=== PATIENT | male | born 1965 | race Two or more races ===

== ENCOUNTER 2017-02-17 13:30 | Inpatient (IN) | payer MEDICAID, SELFPAY ==
[~2017-02-17] VITALS: Ht 175.3 cm; Wt 65.8 kg
[~2017-02-17 13:30] MED LIST: IBUPROFEN600 MG PO; NKM; NORCO 5-325 TA1 EACH ORAL; VALIUM5 MG ORAL
--- NOTE | 2017-02-17 13:53 | Emergency Room Report ---
History of Present Illness General Chief Complaint: Chest Pain Source: Patient Present Illness HPI Patient presents by paramedics for complaints of chest pain Upon arrival the patient has a very blunted affect Upon asking questions he reports that he was feeling ill Currently denies any chest pain denies any back or flank pain Patient does drink alcohol on a regular basis Denies any vomiting or diarrhea Onset of symptom was prior to calling the paramedics however the history of present illness this is somewhat limited as the patient does not answer all questions Stays away to the right side And appears mildly encephalopathic Allergies: Coded Allergies: No Known Allergies (Unverified , 10/08/13) Patient History Limited by: medical condition Past Medical History: see triage record Pertinent Family History: unable to obtain Reviewed Nursing Documentation: PMH: Agreed, PSxH: Agreed Nursing Documentation-PMH Past Medical History: No Stated History Review of Systems All Other Systems: limited - Other than the ones mentioned in the history of present illness all others are reviewed however they do stay limited due to the patient's mental status Physical Exam Vital Signs Date Time Temp Pulse Resp B/P Pulse Ox O2 Delivery O2 Flow Rate FiO2 02/17/17 13:22 97.7 98 12 148/115 97 Room Air Sp02 EP Interpretation: reviewed, normal General Appearance: no apparent distress Head: normocephalic, atraumatic Eyes: bilateral eye EOMI, bilateral eye PERRL ENT: normal pharynx, no angioedema Neck: full range of motion, supple Respiratory: chest non-tender, lungs clear Cardiovascular #1: regular rate, rhythm, no edema Gastrointestinal: non tender, soft Musculoskeletal: normal inspection Neurologic: alert, responsive - However the patient appears confused he says out of the right side when asked further questioning, at times answers with multiple words, however at times appears confused , , motor strength/tone normal Psychiatric: other - blunted affect Skin: no rash Lymphatic: no adenopathy Medical Decision Making Diagnostic Impression: Primary Impression: SVT (supraventricular tachycardia) Additional Impressions: ACS (acute coronary syndrome) Encephalopathy ER Course Patient is a fairly complex patient with multiple differential to consideration including but not limited to cardiac cardiopulmonary and vascular emergencies Other intracranial pathology also entertained given the patient's mild encephalopathy CT head did not show any acute disease blood work essentially at baseline levels There was a small amount of alcohol detected at this time patient required admission for further care Labs Test 02/17/17 13:30 02/17/17 14:35 02/18/17 03:25 White Blood Count 8.1 K/UL (4.8-10.8) 10.5 K/UL (4.8-10.8) Red Blood Count 5.01 M/UL (4.70-6.10) 4.28 M/UL (4.70-6.10) Hemoglobin 17.3 G/DL (14.2-18.0) 14.9 G/DL (14.2-18.0) Hematocrit 49.8 % (42.0-52.0) 44.6 % (42.0-52.0) Mean Corpuscular Volume 99 FL (80-99) 104 FL (80-99) Mean Corpuscular Hemoglobin 34.6 PG (27.0-31.0) 34.8 PG (27.0-31.0) Mean Corpuscular Hemoglobin Concent 34.8 G/DL (32.0-36.0) 33.4 G/DL (32.0-36.0) Red Cell Distribution Width 11.4 % (11.6-14.8) 11.8 % (11.6-14.8) Platelet Count 246 K/UL (150-450) 203 K/UL (150-450) Mean Platelet Volume 6.8 FL (6.5-10.1) 6.9 FL (6.5-10.1) Neutrophils (%) (Auto) 60.1 % (45.0-75.0) 64.6 % (45.0-75.0) Lymphocytes (%) (Auto) 28.2 % (20.0-45.0) 23.4 % (20.0-45.0) Monocytes (%) (Auto) 7.9 % (1.0-10.0) 8.2 % (1.0-10.0) Eosinophils (%) (Auto) 2.0 % (0.0-3.0) 2.6 % (0.0-3.0) Basophils (%) (Auto) 1.7 % (0.0-2.0) 1.2 % (0.0-2.0) Sodium Level 142 mEQ/L (135-145) 142 mEQ/L (135-145) Potassium Level 4.1 mEQ/L (3.4-4.9) 4.3 mEQ/L (3.4-4.9) Chloride Level 98 mEQ/L (98-107) 102 mEQ/L (98-107) Carbon Dioxide Level 22 mEQ/L (20-30) 23 mEQ/L (20-30) Anion Gap 22 (5-15) 17 (5-15) Blood Urea Nitrogen 5 mg/dL (7-23) 6 mg/dL (7-23) Creatinine 0.8 mg/dL (0.7-1.2) 0.7 mg/dL (0.7-1.2) Estimat Glomerular Filtration Rate > 60 mL/min (>60) > 60 mL/min (>60) Glucose Level 95 mg/dL (74-106) 111 mg/dL (74-106) Calcium Level 8.7 mg/dL (8.6-10.2) 8.2 mg/dL (8.6-10.2) Total Bilirubin 0.2 mg/dL (0.0-1.2) Aspartate Amino Transf (AST/SGOT) 125 U/L (5-40) Alanine Aminotransferase (ALT/SGPT) 36 U/L (3-41) Alkaline Phosphatase 70 U/L (40-129) Total Creatine Kinase 121 U/L (38-174) Creatine Kinase MB < 1.5 ng/mL (< 6.7) Creatine Kinase MB Relative Index Troponin I < 0.30 ng/mL (<=0.30) < 0.30 ng/mL (<=0.30) Pro-B-Type Natriuretic Peptide 10 pg/mL (0-125) 147 pg/mL (0-125) Total Protein 7.4 g/dL (6.6-8.7) Albumin 4.1 g/dL (3.5-5.2) Globulin 3.3 g/dL Albumin/Globulin Ratio 1.2 (1.0-2.7) Thyroid Stimulating Hormone (TSH) 1.350 uIU/mL (0.300-4.500) Free Thyroxine 0.91 ng/dL (0.86-1.85) 0.83 ng/dL (0.86-1.85) Serum Alcohol 70 mg/dL Urine Opiates Screen Negative (NEGATIVE) Urine Barbiturates Screen Negative (NEGATIVE) Phencyclidine (PCP) Screen Negative (NEGATIVE) Urine Amphetamines Screen Negative (NEGATIVE) Urine Benzodiazepines Screen Negative (NEGATIVE) Urine Cocaine Screen Negative (NEGATIVE) Urine Marijuana (THC) Screen Negative (NEGATIVE) Prothrombin Time 10.4 SEC (9.30-11.50) Prothromb Time International Ratio 1.0 (0.9-1.1) Activated Partial Thromboplast Time 27 SEC (23-33) C-Reactive Protein, Quantitative < 0.3 mg/dL (< 0.5) Triglycerides Level 117 mg/dL (< 150) Cholesterol Level 146 mg/dL (< 200) LDL Cholesterol 66 mg/dL (60-99) HDL Cholesterol 57 mg/dL (> 60) Cholesterol/HDL Ratio 2.6 (3.3-4.4) EKG Diagnostic Results Rate: normal Rhythm: NSR ST Segments: no acute changes Rhythm Strip Diag. Results EP Interpretation: yes Rate: 67 Rhythm: NSR, no PVC's, no ectopy Chest X-Ray Diagnostic Results EP Interpretation: Yes Findings: no consolidation, no effusion, no pneumothorax Number of Views: 1 CT/MRI/US Diagnostic Results CT/MRI/US Diagnostic Results : Impression CT head: no acute disease Last Vital Signs Date Time Temp Pulse Resp B/P Pulse Ox O2 Delivery O2 Flow Rate FiO2 02/17/17 13:22 97.7 98 12 148/115 97 Room Air Status: improved Disposition: ADMITTED INPATIENT Condition: Serious DAO ZENDEJAS D.O. Feb 17, 2017 13:53
[2017-02-17] MEDS ORDERED: Tubing IV Cassette IV ONE (13:58)
[2017-02-17 14:03] LABS: BASOPHILS % (AUTO) 1.7 % (0.0-2.0); LYMPHOCYTES % (AUTO) 28.2 % (20.0-45.0); MEAN CORPUSCULAR HEMOGLOBIN 34.6 PG (27.0-31.0); MEAN CORPUSCULAR HGB CONC 34.8 G/DL (32.0-36.0); MEAN CORPUSCULAR VOLUME 99 FL (80-99); MEAN PLATELET VOLUME 6.8 FL (6.5-10.1); MONOCYTES % (AUTO) 7.9 % (1.0-10.0); NEUTROPHILS % (AUTO) 60.1 % (45.0-75.0); PLATELET COUNT 246 K/UL (150-450); RED BLOOD COUNT 5.01 M/UL (4.70-6.10); RED CELL DISTRIBUTION WIDTH 11.4 % (11.6-14.8); WHITE BLOOD COUNT 8.1 K/UL (4.8-10.8)
[2017-02-17 14:20] LABS: TROPONIN I < 0.30 ng/mL (<=0.30)
[2017-02-17 14:23] LABS: ALANINE AMINOTRANSFERASE 36 U/L (3-41); ALBUMIN/GLOBULIN RATIO 1.2 (1.0-2.7); ANION GAP 22 (5-15); ASPARTATE AMINO TRANSFERASE 125 U/L (5-40); CALCIUM 8.7 mg/dL (8.6-10.2); CARBON DIOXIDE 22 mEQ/L (20-30); CHLORIDE 98 mEQ/L (98-107); CREATININE 0.8 mg/dL (0.7-1.2); GLOMERULAR FILTRATION RATE > 60 mL/min (>60); HEMOLYSIS 10; POTASSIUM 4.1 mEQ/L (3.4-4.9); SODIUM 142 mEQ/L (135-145); TOTAL PROTEIN 7.4 g/dL (6.6-8.7)
[2017-02-17 14:30] VITALS: BP 143/91
[2017-02-17 14:34] LABS: CKMB < 1.5 ng/mL (< 6.7)
[2017-02-17 14:35] LABS: THYROID STIMULATING HORMONE 1.35 uIU/mL (0.300-4.500)
--- NOTE | 2017-02-17 14:52 | Diagnostic Imaging Report ---
Indication: Altered mental status Technique: Continuous helical CT scanning of the head was performed without intravenous contrast material. Axial and coronal 5 mm sections were generated. Radiation dose was minimized using automated exposure control Dose: Total Dose Length Product - DLP [address] Dose Index - CTDIvol(s) 70.38 mGy. Comparison: 06/10/2013 Findings: The ventricular system is normal in size and configuration. There is no shift of midline structures. No abnormal extra-axial fluid collections are noted. There is no evidence of intracerebral bleeding. No other abnormal high or low density areas are noted within the brain. Previously demonstrated nasal fracture is not evident currently, although the nose is excluded on the imaging volume on the axial images. There is ethmoid sinus disease. Impression: Negative for acute intracranial bleed or mass effect Sinus disease The CT scanner at [facility] is accredited by the [employer] and the scans are performed using protocols designed to limit radiation exposure to as low as reasonably achievable to attain images of sufficient resolution adequate for diagnostic evaluation.
--- NOTE | 2017-02-17 14:53 | Diagnostic Imaging Report ---
Indication: CP Technique: One view of the chest Comparison: none Findings: Inspiration is suboptimal area Lungs and pleural spaces are clear. Heart size is normal. Impression: No acute process
[2017-02-17] MEDS ORDERED: Morphine Sulfate 2mg/ml Inj IVP PRN (15:45)
[2017-02-17] MEDS ORDERED: DuoNeb 0.5-3(2.5)mg/3ml neb HHN PRN (15:45)
[2017-02-17] MEDS ORDERED: Diltiazem 25mg/5ml IV PRN (15:45)
[2017-02-17] MEDS ORDERED: Metoprolol 5mg/5ml Inj IVP PRN (15:45)
[2017-02-17] MEDS ORDERED: Enalaprilat 2.5mg/2ml Inj IV PRN (15:45)
--- NOTE | 2017-02-17 15:57 | Cardiac Electrophysiology PN ---
Subjective Subjective [id number] Objective Last 24 Hour Vital Signs Date Time Temp Pulse Resp B/P Pulse Ox O2 Delivery O2 Flow Rate FiO2 02/17/17 14:30 85 16 143/91 100 02/17/17 13:30 98 12 Room Air 02/17/17 13:22 97.7 98 12 148/115 97 Room Air Laboratory Tests Test 02/17/17 13:30 02/17/17 14:35 White Blood Count 8.1 K/UL (4.8-10.8) Red Blood Count 5.01 M/UL (4.70-6.10) Hemoglobin 17.3 G/DL (14.2-18.0) Hematocrit 49.8 % (42.0-52.0) Mean Corpuscular Volume 99 FL (80-99) Mean Corpuscular Hemoglobin 34.6 PG (27.0-31.0) H Mean Corpuscular Hemoglobin Concent 34.8 G/DL (32.0-36.0) Red Cell Distribution Width 11.4 % (11.6-14.8) L Platelet Count 246 K/UL (150-450) Mean Platelet Volume 6.8 FL (6.5-10.1) Neutrophils (%) (Auto) 60.1 % (45.0-75.0) Lymphocytes (%) (Auto) 28.2 % (20.0-45.0) Monocytes (%) (Auto) 7.9 % (1.0-10.0) Eosinophils (%) (Auto) 2.0 % (0.0-3.0) Basophils (%) (Auto) 1.7 % (0.0-2.0) Sodium Level 142 mEQ/L (135-145) Potassium Level 4.1 mEQ/L (3.4-4.9) Chloride Level 98 mEQ/L (98-107) Carbon Dioxide Level 22 mEQ/L (20-30) Anion Gap 22 (5-15) H Blood Urea Nitrogen 5 mg/dL (7-23) L Creatinine 0.8 mg/dL (0.7-1.2) Estimat Glomerular Filtration Rate > 60 mL/min (>60) Glucose Level 95 mg/dL (74-106) Calcium Level 8.7 mg/dL (8.6-10.2) Total Bilirubin 0.2 mg/dL (0.0-1.2) Aspartate Amino Transf (AST/SGOT) 125 U/L (5-40) H Alanine Aminotransferase (ALT/SGPT) 36 U/L (3-41) Alkaline Phosphatase 70 U/L (40-129) Total Creatine Kinase 121 U/L (38-174) Creatine Kinase MB < 1.5 ng/mL (< 6.7) Creatine Kinase MB Relative Index Troponin I < 0.30 ng/mL (<=0.30) Pro-B-Type Natriuretic Peptide 10 pg/mL (0-125) Total Protein 7.4 g/dL (6.6-8.7) Albumin 4.1 g/dL (3.5-5.2) Globulin 3.3 g/dL Albumin/Globulin Ratio 1.2 (1.0-2.7) Thyroid Stimulating Hormone (TSH) 1.350 uIU/mL (0.300-4.500) Free Thyroxine 0.91 ng/dL (0.86-1.85) Serum Alcohol 70 mg/dL Urine Opiates Screen Negative (NEGATIVE) Urine Barbiturates Screen Negative (NEGATIVE) Phencyclidine (PCP) Screen Negative (NEGATIVE) Urine Amphetamines Screen Negative (NEGATIVE) Urine Benzodiazepines Screen Negative (NEGATIVE) Urine Cocaine Screen Negative (NEGATIVE) Urine Marijuana (THC) Screen Negative (NEGATIVE) HEMALATHA ARRINGTON Feb 17, 2017 15:57
[2017-02-17] MEDS ORDERED: Miralax 17gm pkt ORAL PRN (16:00)
[2017-02-17] MEDS ORDERED: Nitroglycerin Subl 0.4mg tab (Bottle Of 25) SL PRN (16:00)
[2017-02-17 16:02] VITALS: BP 127/78
[2017-02-17 16:38] VITALS: BP 129/94
[2017-02-17] MEDS ORDERED: Folic Acid 1 MG, Magnesium Sulfate 2,000 MG, Multivitamin - 12 Injection 10 ML in NS w/... IV ONE (17:30)
[2017-02-17] MEDS ORDERED: Thiamine 100 MG ivpb IVPB ONE ×2 (17:30)
[2017-02-17 20:00] VITALS: BP 155/99
[2017-02-18 00:10] VITALS: BP 121/76
--- NOTE | 2017-02-18 03:08 | Consultation ---
DATE OF CONSULTATION: CARDIOLOGY CONSULTATION CONSULTING PHYSICIAN: Tony Figueredo M.D. REFERRING PHYSICIAN: James Mcmillan D.O. REASON FOR CONSULTATION: Supraventricular tachycardia. HISTORY OF PRESENT ILLNESS: The patient is a 51-year-old gentleman, who was brought in by paramedics for his chest pain. The patient was brought by paramedics and was found to be in supraventricular tachycardia and received adenosine that converted the patient to sinus rhythm. A Cardiology consultation was obtained for further evaluation and management. At the time of my evaluation, the patient is still in the emergency room in sinus rhythm. . SOCIAL HISTORY: Drinks alcohol on a regular basis. FAMILY HISTORY: Not available. REVIEW OF SYSTEMS: Review of systems was negative other than what was mentioned in the history of present illness. He is a very poor historian. PHYSICAL EXAMINATION: VITAL SIGNS: Blood pressure 148/100, pulse is 98, respirations is 12, and the patient is afebrile. HEAD AND NECK: Showed no JVD. LUNGS: Clear. CARDIOVASCULAR: Shows regular S1 and S2 with no gallop or murmur. ABDOMEN: Soft and nontender. EXTREMITIES: No pitting edema. 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 Subsequent EKG showed sinus rhythm with left anterior fascicular block. His labs show white count 8.1, hemoglobin of 17, hematocrit of 45, and platelets count of 246,000. Sodium 142, potassium 4.1, BUN of 5, creatinine 0.8, and glucose of 95. . BNP is less than 0.3. His urine toxicology screen is negative. Alcohol level is 70. ASSESSMENT AND PLAN: 1. supraventricular tachycardia converted with adenosine. The patient has Cardizem 30 mg every six hours. Continue to follow the patient clinically. The patient rule out for myocardial infarction. We will get an echocardiogram to evaluate for ejection fraction and wall motion abnormality. 2. History of alcohol use, on thiamine and folate, under the management of Dr. Mcmillan. Thank you very much, Dr. Mcmillan, for allowing me to participate in the care of this patient. Please do not hesitate to contact me if you have any questions regarding my evaluation. Tony Figueredo M.D. DR: JONH JOB#: [id number] CC:
[2017-02-18 03:53] VITALS: BP 137/70
[2017-02-18 05:12] LABS: BASOPHILS % (AUTO) 1.2 % (0.0-2.0); EOSINOPHILS % (AUTO) 2.6 % (0.0-3.0); LYMPHOCYTES % (AUTO) 23.4 % (20.0-45.0); MEAN CORPUSCULAR HEMOGLOBIN 34.8 PG (27.0-31.0); MEAN CORPUSCULAR HGB CONC 33.4 G/DL (32.0-36.0); MEAN CORPUSCULAR VOLUME 104 FL (80-99); MEAN PLATELET VOLUME 6.9 FL (6.5-10.1); MONOCYTES % (AUTO) 8.2 % (1.0-10.0); NEUTROPHILS % (AUTO) 64.6 % (45.0-75.0); PLATELET COUNT 203 K/UL (150-450); RED BLOOD COUNT 4.28 M/UL (4.70-6.10); RED CELL DISTRIBUTION WIDTH 11.8 % (11.6-14.8); WHITE BLOOD COUNT 10.5 K/UL (4.8-10.8)
[2017-02-18 05:49] LABS: ANION GAP 17 (5-15); CALCIUM 8.2 mg/dL (8.6-10.2); CARBON DIOXIDE 23 mEQ/L (20-30); CHLORIDE 102 mEQ/L (98-107); CREATININE 0.7 mg/dL (0.7-1.2); GLOMERULAR FILTRATION RATE > 60 mL/min (>60); HEMOLYSIS 12; POTASSIUM 4.3 mEQ/L (3.4-4.9); SODIUM 142 mEQ/L (135-145)
[2017-02-18 05:51] LABS: TROPONIN I < 0.30 ng/mL (<=0.30)
[2017-02-18 05:54] LABS: PROTHROMBIN TIME 10.4 SEC (9.30-11.50)
[2017-02-18 06:59] LABS: CHOLESTEROL 146 mg/dL (< 200); CHOLESTEROL/HDL RATIO 2.6 (3.3-4.4); CRP QUANT < 0.3 mg/dL (< 0.5); HEMOLYSIS 11; LDL CHOLESTEROL (CALC.) 66 mg/dL (60-99)
[2017-02-18 08:00] VITALS: BP 139/82
[2017-02-18 12:09] VITALS: BP 129/77
--- NOTE | 2017-02-18 12:44 | Consultation ---
History of Present Illness General Date patient seen: Feb 18, 2017 Chief Complaint: Chest Pain Referring physician: dr Mcmillan Reason for Consultation: inpatient management Present Illness HPI 51 year old male biba because of chest pain and tachycardia, he received Adenosine and his SVT resolved. Upon arrival the patient has a very blunted affect. His ETOH level was 70. Currently he is asymptomatic and looks comfortable. Allergies: Coded Allergies: No Known Allergies (Unverified , 10/08/13) Medication History Scheduled No Known Medications* (NKM - No Known Medications*), 0 ., (Reported) Discontinued Medications Diazepam* (Valium*), 5 MG ORAL TID PRN for ANXIETY Discontinued Reason: Pt had allergic rxn Hydrocodone Bit/Acetaminophen 5-325* (Finley 5-325*), 1 TAB ORAL Q6H PRN for For Pain Discontinued Reason: Pt had allergic rxn Ibuprofen* (Motrin*), 600 MG PO TID Discontinued Reason: Pt had allergic rxn No Known Medications* (NKM - No Known Medications*), 0 ., (Reported) Discontinued Reason: Pt had allergic rxn Patient History Healthcare decision maker N Resuscitation status Full Code Advanced Directive on File Past Medical/Surgical History Past Medical/Surgical History: (1) ETOH abuse Review of Systems All Other Systems: negative except mentioned in HPI Physical Exam General Appearance: WD/WN Lines, tubes and drains: peripheral HEENT: normocephalic, atraumatic Neck: non-tender, normal alignment, supple Respiratory/Chest: chest wall non-tender, lungs clear Last 24 Hour Vital Signs Date Time Temp Pulse Resp B/P Pulse Ox O2 Delivery O2 Flow Rate FiO2 02/18/17 12:09 96.8 65 17 129/77 98 Room Air 02/18/17 08:50 58 02/18/17 08:00 96.9 63 17 139/82 95 Room Air 02/18/17 07:43 72 02/18/17 06:38 96 Room Air 02/18/17 06:38 64 16 Room Air 02/18/17 06:25 75 137/70 02/18/17 04:00 70 02/18/17 03:53 98.2 88 21 137/70 97 Room Air 02/18/17 00:10 98.3 80 20 121/76 95 Room Air 02/18/17 00:00 75 02/17/17 20:00 97.0 87 22 155/99 98 Room Air 02/17/17 20:00 86 02/17/17 18:59 83 129/94 02/17/17 16:38 97.6 83 20 129/94 98 Room Air 02/17/17 16:04 98.1 90 18 127/78 100 Room Air 02/17/17 16:02 98.1 90 18 127/78 100 Room Air 02/17/17 14:30 85 16 143/91 100 02/17/17 13:30 98 12 Room Air 02/17/17 13:22 97.7 98 12 148/115 97 Room Air Intake and Output 02/17/17 02/18/17 19:00 07:00 Intake Total 0 ml 1125 ml Output Total 650 ml Balance 0 ml 475 ml Intake Oral 0 ml IV Total 1125 ml Output Urine Total 650 ml Laboratory Tests Test 02/17/17 13:30 02/17/17 14:35 02/18/17 03:25 White Blood Count 8.1 K/UL (4.8-10.8) 10.5 K/UL (4.8-10.8) Red Blood Count 5.01 M/UL (4.70-6.10) 4.28 M/UL (4.70-6.10) L Hemoglobin 17.3 G/DL (14.2-18.0) 14.9 G/DL (14.2-18.0) Hematocrit 49.8 % (42.0-52.0) 44.6 % (42.0-52.0) Mean Corpuscular Volume 99 FL (80-99) 104 FL (80-99) H Mean Corpuscular Hemoglobin 34.6 PG (27.0-31.0) H 34.8 PG (27.0-31.0) H Mean Corpuscular Hemoglobin Concent 34.8 G/DL (32.0-36.0) 33.4 G/DL (32.0-36.0) Red Cell Distribution Width 11.4 % (11.6-14.8) L 11.8 % (11.6-14.8) Platelet Count 246 K/UL (150-450) 203 K/UL (150-450) Mean Platelet Volume 6.8 FL (6.5-10.1) 6.9 FL (6.5-10.1) Neutrophils (%) (Auto) 60.1 % (45.0-75.0) 64.6 % (45.0-75.0) Lymphocytes (%) (Auto) 28.2 % (20.0-45.0) 23.4 % (20.0-45.0) Monocytes (%) (Auto) 7.9 % (1.0-10.0) 8.2 % (1.0-10.0) Eosinophils (%) (Auto) 2.0 % (0.0-3.0) 2.6 % (0.0-3.0) Basophils (%) (Auto) 1.7 % (0.0-2.0) 1.2 % (0.0-2.0) Sodium Level 142 mEQ/L (135-145) 142 mEQ/L (135-145) Potassium Level 4.1 mEQ/L (3.4-4.9) 4.3 mEQ/L (3.4-4.9) Chloride Level 98 mEQ/L (98-107) 102 mEQ/L (98-107) Carbon Dioxide Level 22 mEQ/L (20-30) 23 mEQ/L (20-30) Anion Gap 22 (5-15) H 17 (5-15) H Blood Urea Nitrogen 5 mg/dL (7-23) L 6 mg/dL (7-23) L Creatinine 0.8 mg/dL (0.7-1.2) 0.7 mg/dL (0.7-1.2) Estimat Glomerular Filtration Rate > 60 mL/min (>60) > 60 mL/min (>60) Glucose Level 95 mg/dL (74-106) 111 mg/dL (74-106) H Calcium Level 8.7 mg/dL (8.6-10.2) 8.2 mg/dL (8.6-10.2) L Total Bilirubin 0.2 mg/dL (0.0-1.2) Aspartate Amino Transf (AST/SGOT) 125 U/L (5-40) H Alanine Aminotransferase (ALT/SGPT) 36 U/L (3-41) Alkaline Phosphatase 70 U/L (40-129) Total Creatine Kinase 121 U/L (38-174) Creatine Kinase MB < 1.5 ng/mL (< 6.7) Creatine Kinase MB Relative Index Troponin I < 0.30 ng/mL (<=0.30) < 0.30 ng/mL (<=0.30) Pro-B-Type Natriuretic Peptide 10 pg/mL (0-125) 147 pg/mL (0-125) H Total Protein 7.4 g/dL (6.6-8.7) Albumin 4.1 g/dL (3.5-5.2) Globulin 3.3 g/dL Albumin/Globulin Ratio 1.2 (1.0-2.7) Thyroid Stimulating Hormone (TSH) 1.350 uIU/mL (0.300-4.500) 2.190 uIU/mL (0.300-4.500) Free Thyroxine 0.91 ng/dL (0.86-1.85) 0.83 ng/dL (0.86-1.85) L Serum Alcohol 70 mg/dL Urine Opiates Screen Negative (NEGATIVE) Urine Barbiturates Screen Negative (NEGATIVE) Phencyclidine (PCP) Screen Negative (NEGATIVE) Urine Amphetamines Screen Negative (NEGATIVE) Urine Benzodiazepines Screen Negative (NEGATIVE) Urine Cocaine Screen Negative (NEGATIVE) Urine Marijuana (THC) Screen Negative (NEGATIVE) Prothrombin Time 10.4 SEC (9.30-11.50) Prothromb Time International Ratio 1.0 (0.9-1.1) Activated Partial Thromboplast Time 27 SEC (23-33) C-Reactive Protein, Quantitative < 0.3 mg/dL (< 0.5) Triglycerides Level 117 mg/dL (< 150) Cholesterol Level 146 mg/dL (< 200) LDL Cholesterol 66 mg/dL (60-99) HDL Cholesterol 57 mg/dL (> 60) Cholesterol/HDL Ratio 2.6 (3.3-4.4) L Height (Feet): 5 Height (Inches): 9.00 Weight (Pounds): 145 Medications Current Medications Medications (Trade) Dose Ordered Sig/Emili Route PRN Reason Start Time Stop Time Status Last Admin Dose Admin Acetaminophen (Tylenol) 650 mg Q4H PRN ORAL T>100.5 02/17/17 15:45 03/19/17 15:44 Albuterol/ Ipratropium (DuoNeb 0.5-3(2.5)mg/3ml) 3 ml Q4H PRN HHN Shortness of Breath 02/17/17 15:45 02/22/17 15:44 Diltiazem HCl (Cardizem) 10 mg EVERY HOUR PRN IV heart rate more than 120 02/17/17 15:45 03/19/17 15:44 Diltiazem HCl (Cardizem) 60 mg Q8HR ORAL 02/17/17 18:00 03/19/17 17:59 02/18/17 06:25 Enalaprilat (Vasotec) 2.5 mg Q6H PRN IV sbp more than 160 02/17/17 15:45 03/19/17 15:44 Metoprolol Tartrate (Lopressor) 5 mg EVERY HOUR PRN IVP heart rate more than 140 02/17/17 15:45 03/19/17 15:44 Morphine Sulfate (Morphine Sulfate) 2 mg Q4H PRN IVP Severe Pain (Pain Scale 7-10) 02/17/17 15:45 02/24/17 15:44 Nitroglycerin (Ntg) 0.4 mg Q5MIN X 3 DOSES PRN SL Prn Chest Pain 02/17/17 16:00 03/19/17 15:59 Ondansetron HCl (Zofran) 4 mg Q6H PRN IVP Nausea & Vomiting 02/17/17 15:45 03/19/17 15:44 02/17/17 16:40 Pantoprazole (Protonix) 40 mg DAILY ORAL 02/18/17 09:00 03/20/17 08:59 02/18/17 08:16 Polyethylene Glycol (Miralax) 17 gm DAILYPRN PRN ORAL Constipation 02/17/17 16:00 03/19/17 15:59 Temazepam (Restoril) 15 mg HSPRN PRN ORAL Insomnia 02/17/17 21:00 02/24/17 20:59 Assessment/Plan Problem List: (1) ACS (acute coronary syndrome) ICD Codes: I24.9 - Acute ischemic heart disease, unspecified SNOMED: 186714501 (2) SVT (supraventricular tachycardia) ICD Codes: I47.1 - Supraventricular tachycardia SNOMED: 0620365 (3) ETOH abuse ICD Codes: F10.10 - Alcohol abuse, uncomplicated SNOMED: 03672607, 91612105 (4) Encephalopathy ICD Codes: G93.40 - Encephalopathy, unspecified SNOMED: 10603826, 790247606 Assessment/Plan echo, cardiac f/u Banana bag serial ekg, troponin. JOHNSON MCCAIN Feb 18, 2017 12:44
--- NOTE | 2017-02-18 14:01 | Cardiac Electrophysiology PN ---
Assessment/Plan Assessment/Plan 1. Syncope and Supraventricular tachycardia converted with adenosine.Decrease Cardizem to 30 mg every 8 hours in view of Wenckebach. Continue to follow the patient clinically. Ruled out for myocardial infarction. Echocardiogram showed EF 55% 2. History of alcohol use, on thiamine and folate, under the management of Dr. Mcmillan. 3. AVB, Decrease Cardizem DW RN, Dr Mcmillan and Gianfranco Subjective Subjective More alert. No further SVT. Had episodes of Type AVB Mobitz type 1. Objective Last 24 Hour Vital Signs Date Time Temp Pulse Resp B/P Pulse Ox O2 Delivery O2 Flow Rate FiO2 02/18/17 13:39 65 129/77 02/18/17 12:09 96.8 65 17 129/77 98 Room Air 02/18/17 08:50 58 02/18/17 08:00 96.9 63 17 139/82 95 Room Air 02/18/17 07:43 72 02/18/17 06:38 96 Room Air 02/18/17 06:38 64 16 Room Air 02/18/17 06:25 75 137/70 02/18/17 04:00 70 02/18/17 03:53 98.2 88 21 137/70 97 Room Air 02/18/17 00:10 98.3 80 20 121/76 95 Room Air 02/18/17 00:00 75 02/17/17 20:00 97.0 87 22 155/99 98 Room Air 02/17/17 20:00 86 02/17/17 18:59 83 129/94 02/17/17 16:38 97.6 83 20 129/94 98 Room Air 02/17/17 16:04 98.1 90 18 127/78 100 Room Air 02/17/17 16:02 98.1 90 18 127/78 100 Room Air 02/17/17 14:30 85 16 143/91 100 Intake and Output 02/17/17 02/18/17 19:00 07:00 Intake Total 0 ml 1125 ml Output Total 650 ml Balance 0 ml 475 ml Intake Oral 0 ml IV Total 1125 ml Output Urine Total 650 ml Laboratory Tests Test 02/17/17 14:35 02/18/17 03:25 Urine Opiates Screen Negative (NEGATIVE) Urine Barbiturates Screen Negative (NEGATIVE) Phencyclidine (PCP) Screen Negative (NEGATIVE) Urine Amphetamines Screen Negative (NEGATIVE) Urine Benzodiazepines Screen Negative (NEGATIVE) Urine Cocaine Screen Negative (NEGATIVE) Urine Marijuana (THC) Screen Negative (NEGATIVE) White Blood Count 10.5 K/UL (4.8-10.8) Red Blood Count 4.28 M/UL (4.70-6.10) L Hemoglobin 14.9 G/DL (14.2-18.0) Hematocrit 44.6 % (42.0-52.0) Mean Corpuscular Volume 104 FL (80-99) H Mean Corpuscular Hemoglobin 34.8 PG (27.0-31.0) H Mean Corpuscular Hemoglobin Concent 33.4 G/DL (32.0-36.0) Red Cell Distribution Width 11.8 % (11.6-14.8) Platelet Count 203 K/UL (150-450) Mean Platelet Volume 6.9 FL (6.5-10.1) Neutrophils (%) (Auto) 64.6 % (45.0-75.0) Lymphocytes (%) (Auto) 23.4 % (20.0-45.0) Monocytes (%) (Auto) 8.2 % (1.0-10.0) Eosinophils (%) (Auto) 2.6 % (0.0-3.0) Basophils (%) (Auto) 1.2 % (0.0-2.0) Prothrombin Time 10.4 SEC (9.30-11.50) Prothromb Time International Ratio 1.0 (0.9-1.1) Activated Partial Thromboplast Time 27 SEC (23-33) Sodium Level 142 mEQ/L (135-145) Potassium Level 4.3 mEQ/L (3.4-4.9) Chloride Level 102 mEQ/L (98-107) Carbon Dioxide Level 23 mEQ/L (20-30) Anion Gap 17 (5-15) H Blood Urea Nitrogen 6 mg/dL (7-23) L Creatinine 0.7 mg/dL (0.7-1.2) Estimat Glomerular Filtration Rate > 60 mL/min (>60) Glucose Level 111 mg/dL (74-106) H Calcium Level 8.2 mg/dL (8.6-10.2) L Troponin I < 0.30 ng/mL (<=0.30) C-Reactive Protein, Quantitative < 0.3 mg/dL (< 0.5) Pro-B-Type Natriuretic Peptide 147 pg/mL (0-125) H Triglycerides Level 117 mg/dL (< 150) Cholesterol Level 146 mg/dL (< 200) LDL Cholesterol 66 mg/dL (60-99) HDL Cholesterol 57 mg/dL (> 60) Cholesterol/HDL Ratio 2.6 (3.3-4.4) L Thyroid Stimulating Hormone (TSH) 2.190 uIU/mL (0.300-4.500) Free Thyroxine 0.83 ng/dL (0.86-1.85) L Objective HEAD AND NECK: No JVD. LUNGS: Clear. CARDIOVASCULAR: Shows regular S1 and S2 with no gallop or murmur. ABDOMEN: Soft and nontender. EXTREMITIES: No pitting edema. HEMALATHA ARRINGTON Feb 18, 2017 14:01
--- NOTE | 2017-02-18 15:36 | GI Initial Consult Note ---
History of Present Illness General Date patient seen: Feb 18, 2017 Time patient seen: 15:29 Reason for Hospitalization: Chest Pain Referring physician: dr Mcmillan Reason for Consultation: ABDOMINAL PAIN Present Illness HPI Patient presents by paramedics for complaints of chest pain Upon arrival the patient has a very blunted affect Upon asking questions he reports that he was feeling ill Currently denies any chest pain denies any back or flank pain Patient does drink alcohol on a regular basis Denies any vomiting or diarrhea Onset of symptom was prior to calling the paramedics however the history of present illness this is somewhat limited as the patient does not answer all questions Stays away to the right side And appears mildly encephalopathic GI CONSULT: HPI as noted above. Patient seen on floor, awake A&O limited patient has periods of confusion. Pt unable to recall events prior to his initial pain, but acknowledges that he had drinking alcohol. Denies any GI symptoms at this time. He presents today with elevated AST due to alcohol intoxication with elevated serum alcohol. C/o of chest pain with troponin negative x 2. Head CT unremarkable. No history of any endoscopic procedures. Home Meds Reported Medications No Known Medications* (NKM - No Known Medications*) ., 0 ., 0 Refills 02/17/17 Discontinued Reported Medications No Known Medications* (NKM - No Known Medications*) ., 0 ., 0 Refills 10/08/13 Discontinued Scripts Diazepam* (VALIUM*) 5 Mg Tablet, 5 MG ORAL TID Y for ANXIETY, #30 TAB Prov:KITA ISIDRORAMON P.A. 10/08/13 Hydrocodone Bit/Acetaminophen 5-325* (NORCO 5-325*) 1 Each Tablet, 1 TAB ORAL Q6H Y for For Pain, #10 TAB Prov:KITA ISIDRORAMON P.A. 10/08/13 Ibuprofen* (MOTRIN*) 600 Mg Tablet, 600 MG PO TID, #20 TAB Take 1 tablet by mouth three times a day as needed for pain. Prov:KITA ISIDRORAMON P.A. 10/08/13 Med list reviewed/reconciled: Yes Allergies: Coded Allergies: No Known Allergies (Unverified , 10/08/13) Patient History Limited by: medical condition History Provided By: Patient, Medical Record PMH Narrative Limited by: medical condition Past Medical History: see triage record Pertinent Family History: unable to obtain Reviewed Nursing Documentation: PMH: Agreed, PSxH: Agreed Nursing Documentation-[facility] Past Medical History: No Stated History Social History: Reports: alcohol use Review of Systems All Other Systems: negative except mentioned in HPI Physical Exam Vital Signs Date Time Temp Pulse Resp B/P Pulse Ox O2 Delivery O2 Flow Rate FiO2 02/17/17 13:22 97.7 98 12 148/115 97 Room Air Sp02 EP Interpretation: reviewed Labs Laboratory Tests Test 02/18/17 03:25 White Blood Count 10.5 K/UL (4.8-10.8) Red Blood Count 4.28 M/UL (4.70-6.10) L Hemoglobin 14.9 G/DL (14.2-18.0) Hematocrit 44.6 % (42.0-52.0) Mean Corpuscular Volume 104 FL (80-99) H Mean Corpuscular Hemoglobin 34.8 PG (27.0-31.0) H Mean Corpuscular Hemoglobin Concent 33.4 G/DL (32.0-36.0) Red Cell Distribution Width 11.8 % (11.6-14.8) Platelet Count 203 K/UL (150-450) Mean Platelet Volume 6.9 FL (6.5-10.1) Neutrophils (%) (Auto) 64.6 % (45.0-75.0) Lymphocytes (%) (Auto) 23.4 % (20.0-45.0) Monocytes (%) (Auto) 8.2 % (1.0-10.0) Eosinophils (%) (Auto) 2.6 % (0.0-3.0) Basophils (%) (Auto) 1.2 % (0.0-2.0) Prothrombin Time 10.4 SEC (9.30-11.50) Prothromb Time International Ratio 1.0 (0.9-1.1) Activated Partial Thromboplast Time 27 SEC (23-33) Sodium Level 142 mEQ/L (135-145) Potassium Level 4.3 mEQ/L (3.4-4.9) Chloride Level 102 mEQ/L (98-107) Carbon Dioxide Level 23 mEQ/L (20-30) Anion Gap 17 (5-15) H Blood Urea Nitrogen 6 mg/dL (7-23) L Creatinine 0.7 mg/dL (0.7-1.2) Estimat Glomerular Filtration Rate > 60 mL/min (>60) Glucose Level 111 mg/dL (74-106) H Calcium Level 8.2 mg/dL (8.6-10.2) L Troponin I < 0.30 ng/mL (<=0.30) C-Reactive Protein, Quantitative < 0.3 mg/dL (< 0.5) Pro-B-Type Natriuretic Peptide 147 pg/mL (0-125) H Triglycerides Level 117 mg/dL (< 150) Cholesterol Level 146 mg/dL (< 200) LDL Cholesterol 66 mg/dL (60-99) HDL Cholesterol 57 mg/dL (> 60) Cholesterol/HDL Ratio 2.6 (3.3-4.4) L Thyroid Stimulating Hormone (TSH) 2.190 uIU/mL (0.300-4.500) Free Thyroxine 0.83 ng/dL (0.86-1.85) L General Appearance: no apparent distress, alert Head: normocephalic EENT: PERRL/EOMI, normal ENT inspection Neck: normal inspection, supple Respiratory: no respiratory distress Cardiovascular: normal rate Gastrointestinal: normal inspection, non tender, soft Musculoskeletal: normal inspection Neurologic: alert, responsive Skin: normal inspection, normal color, no rash Current Medications Current Medications Medications (Trade) Dose Ordered Sig/Emili Route PRN Reason Start Time Stop Time Status Last Admin Dose Admin Acetaminophen (Tylenol) 650 mg Q4H PRN ORAL T>100.5 02/17/17 15:45 03/19/17 15:44 Albuterol/ Ipratropium (DuoNeb 0.5-3(2.5)mg/3ml) 3 ml Q4H PRN HHN Shortness of Breath 02/17/17 15:45 02/22/17 15:44 Diltiazem HCl (Cardizem) 10 mg EVERY HOUR PRN IV heart rate more than 120 02/17/17 15:45 03/19/17 15:44 Diltiazem HCl (Cardizem) 30 mg Q8HR ORAL 02/18/17 22:00 03/20/17 21:59 Enalaprilat (Vasotec) 2.5 mg Q6H PRN IV sbp more than 160 02/17/17 15:45 03/19/17 15:44 Metoprolol Tartrate (Lopressor) 5 mg EVERY HOUR PRN IVP heart rate more than 140 02/17/17 15:45 03/19/17 15:44 Morphine Sulfate (Morphine Sulfate) 2 mg Q4H PRN IVP Severe Pain (Pain Scale 7-10) 02/17/17 15:45 02/24/17 15:44 Nitroglycerin (Ntg) 0.4 mg Q5MIN X 3 DOSES PRN SL Prn Chest Pain 02/17/17 16:00 03/19/17 15:59 Ondansetron HCl (Zofran) 4 mg Q6H PRN IVP Nausea & Vomiting 02/17/17 15:45 03/19/17 15:44 02/17/17 16:40 Pantoprazole (Protonix) 40 mg DAILY ORAL 02/18/17 09:00 03/20/17 08:59 02/18/17 08:16 Polyethylene Glycol (Miralax) 17 gm DAILYPRN PRN ORAL Constipation 02/17/17 16:00 03/19/17 15:59 Temazepam (Restoril) 15 mg HSPRN PRN ORAL Insomnia 02/17/17 21:00 02/24/17 20:59 GI: Plan Problems: (1) Elevated AST (SGOT) (2) ETOH abuse (3) Encephalopathy Plan symptomatic treatment at this time zofran prn ppi repeat LFTs regular diet ETOH cessation education fu labs Discussed with Dr. Lange. Thank you for referring this patient, we will follow. Mai Mcintyre N.P. Feb 18, 2017 15:36
[2017-02-18 16:00] VITALS: BP 121/83
--- NOTE | 2017-02-18 18:13 | Neurology Progress Note ---
Objective Physical Exam Last Vital Signs Date Time Temp Pulse Resp B/P Pulse Ox O2 Delivery O2 Flow Rate FiO2 02/18/17 16:00 98.6 60 20 121/83 97 Room Air Laboratory Tests Test 02/18/17 03:25 02/18/17 17:10 White Blood Count 10.5 K/UL (4.8-10.8) Red Blood Count 4.28 M/UL (4.70-6.10) L Hemoglobin 14.9 G/DL (14.2-18.0) Hematocrit 44.6 % (42.0-52.0) Mean Corpuscular Volume 104 FL (80-99) H Mean Corpuscular Hemoglobin 34.8 PG (27.0-31.0) H Mean Corpuscular Hemoglobin Concent 33.4 G/DL (32.0-36.0) Red Cell Distribution Width 11.8 % (11.6-14.8) Platelet Count 203 K/UL (150-450) Mean Platelet Volume 6.9 FL (6.5-10.1) Neutrophils (%) (Auto) 64.6 % (45.0-75.0) Lymphocytes (%) (Auto) 23.4 % (20.0-45.0) Monocytes (%) (Auto) 8.2 % (1.0-10.0) Eosinophils (%) (Auto) 2.6 % (0.0-3.0) Basophils (%) (Auto) 1.2 % (0.0-2.0) Prothrombin Time 10.4 SEC (9.30-11.50) Prothromb Time International Ratio 1.0 (0.9-1.1) Activated Partial Thromboplast Time 27 SEC (23-33) Sodium Level 142 mEQ/L (135-145) Potassium Level 4.3 mEQ/L (3.4-4.9) Chloride Level 102 mEQ/L (98-107) Carbon Dioxide Level 23 mEQ/L (20-30) Anion Gap 17 (5-15) H Blood Urea Nitrogen 6 mg/dL (7-23) L Creatinine 0.7 mg/dL (0.7-1.2) Estimat Glomerular Filtration Rate > 60 mL/min (>60) Glucose Level 111 mg/dL (74-106) H Calcium Level 8.2 mg/dL (8.6-10.2) L Troponin I < 0.30 ng/mL (<=0.30) C-Reactive Protein, Quantitative < 0.3 mg/dL (< 0.5) Pro-B-Type Natriuretic Peptide 147 pg/mL (0-125) H Triglycerides Level 117 mg/dL (< 150) Cholesterol Level 146 mg/dL (< 200) LDL Cholesterol 66 mg/dL (60-99) HDL Cholesterol 57 mg/dL (> 60) Cholesterol/HDL Ratio 2.6 (3.3-4.4) L Thyroid Stimulating Hormone (TSH) 2.190 uIU/mL (0.300-4.500) Free Thyroxine 0.83 ng/dL (0.86-1.85) L Ammonia 36 umol/L (16-60) Impression/Recommendations Recommendations #[id number] TERESE YEE Feb 18, 2017 18:13
--- NOTE | 2017-02-18 18:32 | Cardiology Report ---
APPROVED REPORT EKG Measurement Heart [id number] Normal sinus rhythm Possible Left atrial enlargement Left axis deviation Abnormal ECG
--- NOTE | 2017-02-18 19:28 | History and Physical Report ---
DATE OF ADMISSION: 02/17/2017 TIME SEEN: 2 p.m. CONSULTANTS: 1. Cailin Medel M.D. 2. Tony Figueredo M.D. 3. Cheikh Lange M.D. 4. Montez Bales M.D. CHIEF COMPLAINT: Weakness, chest pain, supraventricular tachycardia, nausea, vomiting, alcohol abuse. BRIEF HISTORY: The patient is a 51-year-old male who lives at home presents with binge drinking, getting weaker in the last two days, diagnosed in the ER with SVT, chest pain, nausea, vomiting, alcohol abuse, admitted to telemetry for further care, currently slightly confused in bed, not talking much. PAST MEDICAL HISTORY: Alcohol abuse. PAST SURGICAL HISTORY: Abdominal surgery. ALLERGIES: Denies. MEDICATIONS: Cardizem, Protonix, Restoril, nitroglycerin, MiraLAX, DuoNeb, Tylenol, morphine, Zofran, Vasotec, Cardizem, Lopressor. SOCIAL HISTORY: Positive smoking. Positive alcohol. No intravenous drug abuse. FAMILY HISTORY: Noncontributory. REVIEW OF SYSTEMS: Unavailable. PHYSICAL EXAMINATION: GENERAL: Calm in bed, oriented x1, in no acute distress. VITAL SIGNS: Temperature 96 degrees, pulse 55, respirations 17, blood pressure 129/77. CARDIOVASCULAR: No murmur. LUNGS: Poor exchange. ABDOMEN: Bowel sounds positive. Slightly tender. No guarding. No rigidity. No rebound. EXTREMITIES: No cyanosis, clubbing, or edema. NEUROLOGIC: The patient moves all extremities, but slightly weak. LABORATORY DATA: CBC is normal. BMP, BUN 6. Glucose 111. BNP is 147, otherwise normal BNP. INR 1.0. Urine toxicology is negative. ASSESSMENT: 1. Supraventricular tachycardia. 2. Chest pain. 3. Nausea and vomiting. 4. Alcohol abuse. PLAN: 1. Continue premedications. 2. IV fluids . 3. OT/PT and dietary evaluation. 4. Advance diet as tolerated. 5. CBC and BMP in the morning. 6. Antiemetics p.r.n. 7. Urine toxicology. 8. Cardiology followup. 9. We will continue to follow this patient medically. James Mcmillan D.O. DR: Tracy JOB#: [id number] CC:
[2017-02-18 20:00] VITALS: BP 127/79
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
[2017-02-19 00:39] VITALS: BP 118/80
[2017-02-19 04:00] VITALS: BP 122/77
--- NOTE | 2017-02-19 06:50 | General Progress Note ---
Assessment/Plan Problem List: (1) Elevated AST (SGOT) ICD Codes: R74.0 - Nonspecific elevation of levels of transaminase and lactic acid dehydrogenase [LDH] SNOMED: 077556826 (2) ETOH abuse ICD Codes: F10.10 - Alcohol abuse, uncomplicated SNOMED: 74002939, 95574095 (3) Chest pain ICD Codes: R07.9 - Chest pain, unspecified SNOMED: 19010825 Assessment/Plan thiamine/folic acid/MVI fu labs fu neurology Subjective ROS Limited/Unobtainable: Yes Allergies: Coded Allergies: No Known Allergies (Unverified , 10/08/13) Subjective no event Objective Last 24 Hour Vital Signs Date Time Temp Pulse Resp B/P Pulse Ox O2 Delivery O2 Flow Rate FiO2 02/19/17 06:13 64 122/77 02/19/17 04:00 97.9 63 20 122/77 97 Room Air 02/19/17 04:00 82 02/19/17 00:39 97.7 58 20 118/80 98 Room Air 02/19/17 00:00 56 02/18/17 20:56 60 121/83 02/18/17 20:00 98.2 68 20 127/79 98 Room Air 02/18/17 20:00 67 16 Room Air 02/18/17 20:00 97 Room Air 02/18/17 20:00 67 02/18/17 16:00 98.6 60 20 121/83 97 Room Air 02/18/17 13:39 65 129/77 02/18/17 12:09 96.8 65 17 129/77 98 Room Air 02/18/17 08:50 58 02/18/17 08:00 96.9 63 17 139/82 95 Room Air 02/18/17 07:43 72 Intake and Output 02/18/17 02/19/17 19:00 07:00 Intake Total 740 ml 310 ml Output Total 500 ml Balance 740 ml -190 ml Intake Oral 740 ml 310 ml Output Urine Total 500 ml # Voids 2 2 Laboratory Tests 02/18/17 17:10: Ammonia 36 Height (Feet): 5 Height (Inches): 9.00 Weight (Pounds): 145 General Appearance: no apparent distress EENT: normal ENT inspection Neck: supple Cardiovascular: normal rate Respiratory/Chest: lungs clear Abdomen: normal bowel sounds, non tender, soft Extremities: non-tender ONEL CHERRY Feb 19, 2017 06:50
[2017-02-19 07:53] LABS: BASOPHILS % (AUTO) 1.3 % (0.0-2.0); EOSINOPHILS % (AUTO) 2.4 % (0.0-3.0); LYMPHOCYTES % (AUTO) 28.7 % (20.0-45.0); MEAN CORPUSCULAR HEMOGLOBIN 34.4 PG (27.0-31.0); MEAN CORPUSCULAR HGB CONC 33.2 G/DL (32.0-36.0); MEAN CORPUSCULAR VOLUME 103 FL (80-99); MEAN PLATELET VOLUME 7.4 FL (6.5-10.1); NEUTROPHILS % (AUTO) 57.6 % (45.0-75.0); PLATELET COUNT 206 K/UL (150-450); RED BLOOD COUNT 4.49 M/UL (4.70-6.10); RED CELL DISTRIBUTION WIDTH 11.5 % (11.6-14.8); WHITE BLOOD COUNT 8.2 K/UL (4.8-10.8)
[2017-02-19 08:00] VITALS: BP 123/71
[2017-02-19 08:08] LABS: TROPONIN I < 0.30 ng/mL (<=0.30)
[2017-02-19 08:09] LABS: ALANINE AMINOTRANSFERASE 20 U/L (3-41); ALBUMIN/GLOBULIN RATIO 1.3 (1.0-2.7); ANION GAP 14 (5-15); ASPARTATE AMINO TRANSFERASE 31 U/L (5-40); CALCIUM 8.7 mg/dL (8.6-10.2); CARBON DIOXIDE 25 mEQ/L (20-30); CHLORIDE 98 mEQ/L (98-107); CREATININE 0.7 mg/dL (0.7-1.2); GLOMERULAR FILTRATION RATE > 60 mL/min (>60); HEMOLYSIS 7; POTASSIUM 3.9 mEQ/L (3.4-4.9); SODIUM 137 mEQ/L (135-145); TOTAL PROTEIN 6.3 g/dL (6.6-8.7)
[2017-02-19 12:00] VITALS: BP 118/73
--- NOTE | 2017-02-19 12:53 | Cardiac Electrophysiology PN ---
Assessment/Plan Assessment/Plan 1. Syncope and Supraventricular tachycardia converted with adenosine. On Cardizem 30 mg every 8 hours. Ruled out for myocardial infarction. Echocardiogram showed EF 55% 2. History of alcohol use, on thiamine and folate, under the management of Dr. Mcmillan. 3. Second degree AVB, Better with lower Cardizem. Had only one episode at 2 am. DW RN OK to DC Subjective Subjective . No further SVT. Had second degree AV block again last night while sleeping. Objective Last 24 Hour Vital Signs Date Time Temp Pulse Resp B/P Pulse Ox O2 Delivery O2 Flow Rate FiO2 02/19/17 12:00 71 02/19/17 08:02 69 16 Room Air 02/19/17 08:02 97 Room Air 02/19/17 08:00 60 02/19/17 08:00 97.7 60 18 123/71 97 Room Air 02/19/17 06:13 64 122/77 02/19/17 04:00 97.9 63 20 122/77 97 Room Air 02/19/17 04:00 82 02/19/17 00:39 97.7 58 20 118/80 98 Room Air 02/19/17 00:00 56 02/18/17 20:56 60 121/83 02/18/17 20:00 98.2 68 20 127/79 98 Room Air 02/18/17 20:00 67 16 Room Air 02/18/17 20:00 97 Room Air 02/18/17 20:00 67 02/18/17 16:00 98.6 60 20 121/83 97 Room Air 02/18/17 13:39 65 129/77 Intake and Output 02/18/17 02/19/17 19:00 07:00 Intake Total 740 ml 310 ml Output Total 500 ml Balance 740 ml -190 ml Intake Oral 740 ml 310 ml Output Urine Total 500 ml # Voids 2 2 Laboratory Tests Test 02/18/17 17:10 02/19/17 07:30 Ammonia 36 umol/L (16-60) White Blood Count 8.2 K/UL (4.8-10.8) Red Blood Count 4.49 M/UL (4.70-6.10) L Hemoglobin 15.4 G/DL (14.2-18.0) Hematocrit 46.4 % (42.0-52.0) Mean Corpuscular Volume 103 FL (80-99) H Mean Corpuscular Hemoglobin 34.4 PG (27.0-31.0) H Mean Corpuscular Hemoglobin Concent 33.2 G/DL (32.0-36.0) Red Cell Distribution Width 11.5 % (11.6-14.8) L Platelet Count 206 K/UL (150-450) Mean Platelet Volume 7.4 FL (6.5-10.1) Neutrophils (%) (Auto) 57.6 % (45.0-75.0) Lymphocytes (%) (Auto) 28.7 % (20.0-45.0) Monocytes (%) (Auto) 10.0 % (1.0-10.0) Eosinophils (%) (Auto) 2.4 % (0.0-3.0) Basophils (%) (Auto) 1.3 % (0.0-2.0) Sodium Level 137 mEQ/L (135-145) Potassium Level 3.9 mEQ/L (3.4-4.9) Chloride Level 98 mEQ/L (98-107) Carbon Dioxide Level 25 mEQ/L (20-30) Anion Gap 14 (5-15) Blood Urea Nitrogen 3 mg/dL (7-23) L Creatinine 0.7 mg/dL (0.7-1.2) Estimat Glomerular Filtration Rate > 60 mL/min (>60) Glucose Level 94 mg/dL (74-106) Calcium Level 8.7 mg/dL (8.6-10.2) Total Bilirubin 0.6 mg/dL (0.0-1.2) Aspartate Amino Transf (AST/SGOT) 31 U/L (5-40) Alanine Aminotransferase (ALT/SGPT) 20 U/L (3-41) Alkaline Phosphatase 57 U/L (40-129) Troponin I < 0.30 ng/mL (<=0.30) Total Protein 6.3 g/dL (6.6-8.7) L Albumin 3.6 g/dL (3.5-5.2) Globulin 2.7 g/dL Albumin/Globulin Ratio 1.3 (1.0-2.7) Objective HEAD AND NECK: No JVD. LUNGS: Clear. CARDIOVASCULAR: Shows regular S1 and S2 with no gallop or murmur. ABDOMEN: Soft and nontender. EXTREMITIES: No pitting edema. HEMALATHA ARRINGTON Feb 19, 2017 12:53
--- NOTE | 2017-02-19 13:06 | Pulmonology Progress Note ---
Assessment/Plan Assessment/Plan ASSESSMENT chest pain r/o ACS SVT, converted with Adenosine acute toxic encephalopathy ( due to alcohol intoxication) syncope 2 to ETOH intoxication hx of ETOH abuse AV block-Wenckebach Nicotine dependency. possible depression. PLAN OF CARE tele O2 HHN prn CXR negative serial troponin negative, ECG no ischemic changes, ruled out for acute CO by cardio ECHO with EF 55% Cardizem dose decreased by cardio 2 to Wenckebach s/p banana bag started on oral thiamine, folic acid, MVI check Mg level in am GI follows neuro follows CT head negative LFT-stable, antiemetic prn monitor diet tolerance college admissions counselor on abstinence from ETOH and referral to AA PT/OT can be transferred to [place] if cleared by cardio case discussed and evaluated by supervising physician Subjective Allergies: Coded Allergies: No Known Allergies (Unverified , 10/08/13) Subjective feeling better denies chest pain, SOB, palpitations, dizziness Objective Last 24 Hour Vital Signs Date Time Temp Pulse Resp B/P Pulse Ox O2 Delivery O2 Flow Rate FiO2 02/19/17 12:00 71 02/19/17 08:02 69 16 Room Air 02/19/17 08:02 97 Room Air 02/19/17 08:00 60 02/19/17 08:00 97.7 60 18 123/71 97 Room Air 02/19/17 06:13 64 122/77 02/19/17 04:00 97.9 63 20 122/77 97 Room Air 02/19/17 04:00 82 02/19/17 00:39 97.7 58 20 118/80 98 Room Air 02/19/17 00:00 56 02/18/17 20:56 60 121/83 02/18/17 20:00 98.2 68 20 127/79 98 Room Air 02/18/17 20:00 67 16 Room Air 02/18/17 20:00 97 Room Air 02/18/17 20:00 67 02/18/17 16:00 98.6 60 20 121/83 97 Room Air 02/18/17 13:39 65 129/77 Intake and Output 02/18/17 02/19/17 19:00 07:00 Intake Total 740 ml 310 ml Output Total 500 ml Balance 740 ml -190 ml Intake Oral 740 ml 310 ml Output Urine Total 500 ml # Voids 2 2 General Appearance: no acute distress HEENT: normocephalic, atraumatic, anicteric, mucous membranes moist Respiratory/Chest: chest wall non-tender, lungs clear, no respiratory distress , no accessory muscle use Cardiovascular: normal peripheral pulses, normal rate, regular rhythm, no JVD Abdomen: normal bowel sounds, soft, non tender, non distended Genitourinary: normal external genitalia Extremities: no edema, pedal pulses normal Neurologic/Psychiatric: no motor/sensory deficits, alert, oriented x 3, responsive Musculoskeletal: normal muscle bulk Laboratory Tests 02/18/17 17:10: Ammonia 36 02/19/17 07:30: White Blood Count 8.2, Red Blood Count 4.49L, Hemoglobin 15.4, Hematocrit 46.4, Mean Corpuscular Volume 103H, Mean Corpuscular Hemoglobin 34.4H, Mean Corpuscular Hemoglobin Concent 33.2, Red Cell Distribution Width 11.5L, Platelet Count 206, Mean Platelet Volume 7.4, Neutrophils (%) (Auto) 57.6, Lymphocytes (%) (Auto) 28.7, Monocytes (%) (Auto) 10.0, Eosinophils (%) (Auto) 2.4, Basophils (%) (Auto) 1.3, Sodium Level 137, Potassium Level 3.9, Chloride Level 98, Carbon Dioxide Level 25, Anion Gap 14, Blood Urea Nitrogen 3L, Creatinine 0.7, Estimat Glomerular Filtration Rate > 60, Glucose Level 94, Calcium Level 8.7, Total Bilirubin 0.6, Aspartate Amino Transf (AST/SGOT) 31, Alanine Aminotransferase (ALT/SGPT) 20, Alkaline Phosphatase 57, Troponin I < 0.30, Total Protein 6.3L, Albumin 3.6, Globulin 2.7, Albumin/Globulin Ratio 1.3 Current Medications Medications (Trade) Dose Ordered Sig/Emili Route PRN Reason Start Time Stop Time Status Last Admin Dose Admin Acetaminophen (Tylenol) 650 mg Q4H PRN ORAL T>100.5 02/17/17 15:45 03/19/17 15:44 Albuterol/ Ipratropium (DuoNeb 0.5-3(2.5)mg/3ml) 3 ml Q4H PRN HHN Shortness of Breath 02/17/17 15:45 02/22/17 15:44 Diltiazem HCl (Cardizem) 10 mg EVERY HOUR PRN IV heart rate more than 120 02/17/17 15:45 03/19/17 15:44 Diltiazem HCl (Cardizem) 30 mg Q8HR ORAL 02/18/17 22:00 03/20/17 21:59 02/19/17 06:13 Enalaprilat (Vasotec) 2.5 mg Q6H PRN IV sbp more than 160 02/17/17 15:45 03/19/17 15:44 Metoprolol Tartrate (Lopressor) 5 mg EVERY HOUR PRN IVP heart rate more than 140 02/17/17 15:45 03/19/17 15:44 Morphine Sulfate (Morphine Sulfate) 2 mg Q4H PRN IVP Severe Pain (Pain Scale 7-10) 02/17/17 15:45 02/24/17 15:44 Nitroglycerin (Ntg) 0.4 mg Q5MIN X 3 DOSES PRN SL Prn Chest Pain 02/17/17 16:00 03/19/17 15:59 Ondansetron HCl (Zofran) 4 mg Q6H PRN IVP Nausea & Vomiting 02/17/17 15:45 03/19/17 15:44 02/17/17 16:40 Pantoprazole (Protonix) 40 mg DAILY ORAL 02/18/17 09:00 03/20/17 08:59 02/19/17 08:03 Polyethylene Glycol (Miralax) 17 gm DAILYPRN PRN ORAL Constipation 02/17/17 16:00 03/19/17 15:59 Temazepam (Restoril) 15 mg HSPRN PRN ORAL Insomnia 02/17/17 21:00 02/24/17 20:59 Tin (Travon)Alesia NP Feb 19, 2017 13:06
--- NOTE | 2017-02-19 14:55 | General Progress Note ---
Assessment/Plan Problem List: (1) acute cervical strain (2) acute lumbar strain (3) Chest pain ICD Codes: R07.9 - Chest pain, unspecified SNOMED: 87201678 (4) Encephalopathy ICD Codes: G93.40 - Encephalopathy, unspecified SNOMED: 56738449, 805340806 (5) ACS (acute coronary syndrome) ICD Codes: I24.9 - Acute ischemic heart disease, unspecified SNOMED: 656986608 (6) ETOH abuse ICD Codes: F10.10 - Alcohol abuse, uncomplicated SNOMED: 97568663, 73077850 (7) SVT (supraventricular tachycardia) ICD Codes: I47.1 - Supraventricular tachycardia SNOMED: 1750737 (8) Elevated AST (SGOT) ICD Codes: R74.0 - Nonspecific elevation of levels of transaminase and lactic acid dehydrogenase [LDH] SNOMED: 558237464 Status: stable, progressing, tolerating diet Assessment/Plan ot pt diet cardio f/u cbc bmp am Subjective Constitutional: Reports: weakness Allergies: Coded Allergies: No Known Allergies (Unverified , 10/08/13) All Systems: reviewed and negative except above Subjective sleepy calm in bed Objective Last 24 Hour Vital Signs Date Time Temp Pulse Resp B/P Pulse Ox O2 Delivery O2 Flow Rate FiO2 02/19/17 13:28 75 121/84 02/19/17 12:00 97.5 66 20 118/73 98 Room Air 02/19/17 12:00 71 02/19/17 08:02 69 16 Room Air 02/19/17 08:02 97 Room Air 02/19/17 08:00 60 02/19/17 08:00 97.7 60 18 123/71 97 Room Air 02/19/17 06:13 64 122/77 02/19/17 04:00 97.9 63 20 122/77 97 Room Air 02/19/17 04:00 82 02/19/17 00:39 97.7 58 20 118/80 98 Room Air 02/19/17 00:00 56 02/18/17 20:56 60 121/83 02/18/17 20:00 98.2 68 20 127/79 98 Room Air 02/18/17 20:00 67 16 Room Air 02/18/17 20:00 97 Room Air 02/18/17 20:00 67 02/18/17 16:00 98.6 60 20 121/83 97 Room Air Intake and Output 02/18/17 02/19/17 19:00 07:00 Intake Total 740 ml 310 ml Output Total 500 ml Balance 740 ml -190 ml Intake Oral 740 ml 310 ml Output Urine Total 500 ml # Voids 2 2 Laboratory Tests 02/18/17 17:10: Ammonia 36 02/19/17 07:30: White Blood Count 8.2, Red Blood Count 4.49L, Hemoglobin 15.4, Hematocrit 46.4, Mean Corpuscular Volume 103H, Mean Corpuscular Hemoglobin 34.4H, Mean Corpuscular Hemoglobin Concent 33.2, Red Cell Distribution Width 11.5L, Platelet Count 206, Mean Platelet Volume 7.4, Neutrophils (%) (Auto) 57.6, Lymphocytes (%) (Auto) 28.7, Monocytes (%) (Auto) 10.0, Eosinophils (%) (Auto) 2.4, Basophils (%) (Auto) 1.3, Sodium Level 137, Potassium Level 3.9, Chloride Level 98, Carbon Dioxide Level 25, Anion Gap 14, Blood Urea Nitrogen 3L, Creatinine 0.7, Estimat Glomerular Filtration Rate > 60, Glucose Level 94, Calcium Level 8.7, Total Bilirubin 0.6, Aspartate Amino Transf (AST/SGOT) 31, Alanine Aminotransferase (ALT/SGPT) 20, Alkaline Phosphatase 57, Troponin I < 0.30, Total Protein 6.3L, Albumin 3.6, Globulin 2.7, Albumin/Globulin Ratio 1.3 Height (Feet): 5 Height (Inches): 9.00 Weight (Pounds): 145 General Appearance: lethargic EENT: normal ENT inspection Neck: normal alignment Cardiovascular: normal peripheral pulses, normal rate, regular rhythm Respiratory/Chest: chest wall non-tender, lungs clear, normal breath sounds Abdomen: normal bowel sounds, non tender, soft Extremities: normal inspection Edema: no edema noted Arm (L), no edema noted Arm (R), no edema noted Leg (L), no edema noted Leg (R), no edema noted Pedal (L), no edema noted Pedal (R), no edema noted Generalized Neurologic: responsive, motor weakness Skin: normal pigmentation, warm/dry BRET CASTRO Feb 19, 2017 14:55
[2017-02-19 16:00] VITALS: BP 111/68
[2017-02-19 20:00] VITALS: BP 115/77
[2017-02-19] MEDS ORDERED: Metoprolol 5mg/5ml Inj IVP PRN (21:00)
[2017-02-19] MEDS ORDERED: Nitroglycerin Subl 0.4mg tab (Bottle Of 25) SL PRN (21:00)
[2017-02-19] MEDS ORDERED: Diltiazem 25mg/5ml IV PRN (21:00)
[2017-02-19] MEDS ORDERED: Miralax 17gm pkt ORAL PRN (21:00)
[2017-02-19] MEDS ORDERED: Enalaprilat 2.5mg/2ml Inj IV PRN (21:45)
[2017-02-19] MEDS ORDERED: Morphine Sulfate 2mg/ml Inj IVP PRN (22:00)
[2017-02-19] MEDS ORDERED: DuoNeb 0.5-3(2.5)mg/3ml neb HHN PRN (22:00)
[2017-02-20] VITALS: BP 129/64
[2017-02-20 04:00] VITALS: BP 131/78
[2017-02-20 07:47] LABS: BASOPHILS % (AUTO) 1.2 % (0.0-2.0); EOSINOPHILS % (AUTO) 2.3 % (0.0-3.0); LYMPHOCYTES % (AUTO) 26.9 % (20.0-45.0); MEAN CORPUSCULAR HEMOGLOBIN 34.7 PG (27.0-31.0); MEAN CORPUSCULAR HGB CONC 33.5 G/DL (32.0-36.0); MEAN CORPUSCULAR VOLUME 104 FL (80-99); MEAN PLATELET VOLUME 7.2 FL (6.5-10.1); MONOCYTES % (AUTO) 8.6 % (1.0-10.0); PLATELET COUNT 208 K/UL (150-450); RED BLOOD COUNT 4.44 M/UL (4.70-6.10); RED CELL DISTRIBUTION WIDTH 11.3 % (11.6-14.8); WHITE BLOOD COUNT 8.5 K/UL (4.8-10.8)
[2017-02-20 07:51] VITALS: BP 116/69
[2017-02-20 08:15] LABS: ALANINE AMINOTRANSFERASE 18 U/L (3-41); ALBUMIN/GLOBULIN RATIO 1.4 (1.0-2.7); ANION GAP 16 (5-15); ASPARTATE AMINO TRANSFERASE 25 U/L (5-40); CALCIUM 8.4 mg/dL (8.6-10.2); CARBON DIOXIDE 26 mEQ/L (20-30); CHLORIDE 99 mEQ/L (98-107); CREATININE 0.6 mg/dL (0.7-1.2); GLOMERULAR FILTRATION RATE > 60 mL/min (>60); HEMOLYSIS 5; POTASSIUM 3.8 mEQ/L (3.4-4.9); SODIUM 141 mEQ/L (135-145); TOTAL PROTEIN 6.4 g/dL (6.6-8.7)
--- NOTE | 2017-02-20 08:56 | General Progress Note ---
Assessment/Plan Problem List: (1) Elevated AST (SGOT) ICD Codes: R74.0 - Nonspecific elevation of levels of transaminase and lactic acid dehydrogenase [LDH] SNOMED: 848053627 (2) ETOH abuse ICD Codes: F10.10 - Alcohol abuse, uncomplicated SNOMED: 53679234, 46832486 (3) Chest pain ICD Codes: R07.9 - Chest pain, unspecified SNOMED: 26112812 Assessment/Plan thiamine/folic acid/MVI fu labs fu neurology Subjective ROS Limited/Unobtainable: Yes Allergies: Coded Allergies: No Known Allergies (Unverified , 10/08/13) Subjective no event Objective Last 24 Hour Vital Signs Date Time Temp Pulse Resp B/P Pulse Ox O2 Delivery O2 Flow Rate FiO2 02/20/17 07:51 97.7 68 20 116/69 98 Room Air 02/20/17 05:55 68 131/78 02/20/17 04:00 97.5 68 18 131/78 100 Room Air 02/20/17 00:00 97.9 65 16 129/64 100 Room Air 02/19/17 21:56 64 126/74 02/19/17 20:00 98.2 72 18 115/77 97 Room Air 02/19/17 19:30 97 Room Air 21 02/19/17 19:30 70 16 Room Air 21 02/19/17 16:00 96.8 67 18 111/68 97 Room Air 02/19/17 13:28 75 121/84 02/19/17 12:00 97.5 66 20 118/73 98 Room Air 02/19/17 12:00 71 Intake and Output 02/19/17 02/20/17 19:00 07:00 Intake Total 300 ml 580 ml Balance 300 ml 580 ml Intake Oral 300 ml 580 ml # Voids 2 1 Laboratory Tests 02/20/17 06:40: White Blood Count 8.5, Red Blood Count 4.44L, Hemoglobin 15.4, Hematocrit 46.0, Mean Corpuscular Volume 104H, Mean Corpuscular Hemoglobin 34.7H, Mean Corpuscular Hemoglobin Concent 33.5, Red Cell Distribution Width 11.3L, Platelet Count 208, Mean Platelet Volume 7.2, Neutrophils (%) (Auto) 61.0, Lymphocytes (%) (Auto) 26.9, Monocytes (%) (Auto) 8.6, Eosinophils (%) (Auto) 2.3, Basophils (%) (Auto) 1.2, Sodium Level 141, Potassium Level 3.8, Chloride Level 99, Carbon Dioxide Level 26, Anion Gap 16H, Blood Urea Nitrogen 5L, Creatinine 0.6L, Estimat Glomerular Filtration Rate > 60, Glucose Level 96, Calcium Level 8.4L, Magnesium Level 1.8, Total Bilirubin 0.4, Aspartate Amino Transf (AST/SGOT) 25, Alanine Aminotransferase (ALT/SGPT) 18, Alkaline Phosphatase 51, Total Protein 6.4L, Albumin 3.8, Globulin 2.6, Albumin/Globulin Ratio 1.4 Height (Feet): 5 Height (Inches): 9.00 Weight (Pounds): 145 General Appearance: alert EENT: normal ENT inspection Neck: supple Cardiovascular: normal rate Respiratory/Chest: decreased breath sounds Abdomen: normal bowel sounds, non tender, soft Extremities: non-tender ONEL CHERRY Feb 20, 2017 08:56
[2017-02-20] MEDS ORDERED: Thiamine 100mg tab ORAL SCH ×2 (09:00)
--- NOTE | 2017-02-20 09:26 | General Progress Note ---
Assessment/Plan Problem List: (1) acute cervical strain (2) acute lumbar strain (3) Chest pain ICD Codes: R07.9 - Chest pain, unspecified SNOMED: 24420850 (4) Encephalopathy ICD Codes: G93.40 - Encephalopathy, unspecified SNOMED: 08833431, 198415967 (5) ACS (acute coronary syndrome) ICD Codes: I24.9 - Acute ischemic heart disease, unspecified SNOMED: 668854843 (6) ETOH abuse ICD Codes: F10.10 - Alcohol abuse, uncomplicated SNOMED: 42384298, 44632177 (7) SVT (supraventricular tachycardia) ICD Codes: I47.1 - Supraventricular tachycardia SNOMED: 1930645 (8) Elevated AST (SGOT) ICD Codes: R74.0 - Nonspecific elevation of levels of transaminase and lactic acid dehydrogenase [LDH] SNOMED: 755424146 Status: stable, progressing, tolerating diet Assessment/Plan ot pt diet cardio f/u Subjective Constitutional: Reports: weakness Allergies: Coded Allergies: No Known Allergies (Unverified , 10/08/13) All Systems: reviewed and negative except above Subjective sleepy calm in bed Objective Last 24 Hour Vital Signs Date Time Temp Pulse Resp B/P Pulse Ox O2 Delivery O2 Flow Rate FiO2 02/20/17 07:51 97.7 68 20 116/69 98 Room Air 02/20/17 05:55 68 131/78 02/20/17 04:00 97.5 68 18 131/78 100 Room Air 02/20/17 00:00 97.9 65 16 129/64 100 Room Air 02/19/17 21:56 64 126/74 02/19/17 20:00 98.2 72 18 115/77 97 Room Air 02/19/17 19:30 97 Room Air 21 02/19/17 19:30 70 16 Room Air 21 02/19/17 16:00 96.8 67 18 111/68 97 Room Air 02/19/17 13:28 75 121/84 02/19/17 12:00 97.5 66 20 118/73 98 Room Air 02/19/17 12:00 71 Intake and Output 02/19/17 02/20/17 19:00 07:00 Intake Total 300 ml 580 ml Balance 300 ml 580 ml Intake Oral 300 ml 580 ml # Voids 2 1 Laboratory Tests 02/20/17 06:40: White Blood Count 8.5, Red Blood Count 4.44L, Hemoglobin 15.4, Hematocrit 46.0, Mean Corpuscular Volume 104H, Mean Corpuscular Hemoglobin 34.7H, Mean Corpuscular Hemoglobin Concent 33.5, Red Cell Distribution Width 11.3L, Platelet Count 208, Mean Platelet Volume 7.2, Neutrophils (%) (Auto) 61.0, Lymphocytes (%) (Auto) 26.9, Monocytes (%) (Auto) 8.6, Eosinophils (%) (Auto) 2.3, Basophils (%) (Auto) 1.2, Sodium Level 141, Potassium Level 3.8, Chloride Level 99, Carbon Dioxide Level 26, Anion Gap 16H, Blood Urea Nitrogen 5L, Creatinine 0.6L, Estimat Glomerular Filtration Rate > 60, Glucose Level 96, Calcium Level 8.4L, Magnesium Level 1.8, Total Bilirubin 0.4, Aspartate Amino Transf (AST/SGOT) 25, Alanine Aminotransferase (ALT/SGPT) 18, Alkaline Phosphatase 51, Total Protein 6.4L, Albumin 3.8, Globulin 2.6, Albumin/Globulin Ratio 1.4 Height (Feet): 5 Height (Inches): 9.00 Weight (Pounds): 145 General Appearance: lethargic EENT: normal ENT inspection Neck: normal alignment Cardiovascular: normal peripheral pulses, normal rate, regular rhythm Respiratory/Chest: chest wall non-tender, lungs clear, normal breath sounds Abdomen: normal bowel sounds, non tender, soft Extremities: normal inspection Edema: no edema noted Arm (L), no edema noted Arm (R), no edema noted Leg (L), no edema noted Leg (R), no edema noted Pedal (L), no edema noted Pedal (R), no edema noted Generalized Neurologic: responsive, motor weakness Skin: normal pigmentation, warm/dry BRET CASTRO Feb 20, 2017 09:26
[2017-02-20 13:00] VITALS: BP 129/78
--- NOTE | 2017-02-20 13:09 | Pulmonology Progress Note ---
Assessment/Plan Assessment/Plan ASSESSMENT chest pain r/o ACS SVT, converted with Adenosine acute toxic encephalopathy ( due to alcohol intoxication) syncope 2 to ETOH intoxication hx of ETOH abuse AV block-Wenckebach Nicotine dependency. possible depression. PLAN OF CARE tele O2 HHN prn CXR negative serial troponin negative, ECG no ischemic changes, ruled out for acute VT by cardio ECHO with EF 55% Cardizem dose decreased by cardio 2 to Wenckebach s/p banana bag started on oral thiamine, folic acid, MVI check Mg level in am GI follows neuro follows CT head negative LFT-stable, antiemetic prn monitor diet tolerance educational guidance counselor on abstinence from ETOH and referral to AA PT/OT remains stable dc plan as per PMD case discussed and evaluated by supervising physician Subjective Allergies: Coded Allergies: No Known Allergies (Unverified , 10/08/13) Subjective transferred to [place] floor feeling better denies chest pain, SOB, palpitations, dizziness no signs of respiratory distress Objective Last 24 Hour Vital Signs Date Time Temp Pulse Resp B/P Pulse Ox O2 Delivery O2 Flow Rate FiO2 02/20/17 08:25 98 Room Air 21 02/20/17 08:25 68 16 Room Air 21 02/20/17 07:51 97.7 68 20 116/69 98 Room Air 02/20/17 05:55 68 131/78 02/20/17 04:00 97.5 68 18 131/78 100 Room Air 02/20/17 00:00 97.9 65 16 129/64 100 Room Air 02/19/17 21:56 64 126/74 02/19/17 20:00 98.2 72 18 115/77 97 Room Air 02/19/17 19:30 97 Room Air 21 02/19/17 19:30 70 16 Room Air 21 02/19/17 16:00 96.8 67 18 111/68 97 Room Air 02/19/17 13:28 75 121/84 Intake and Output 02/19/17 02/20/17 19:00 07:00 Intake Total 300 ml 580 ml Balance 300 ml 580 ml Intake Oral 300 ml 580 ml # Voids 2 1 Laboratory Tests 02/20/17 06:40: White Blood Count 8.5, Red Blood Count 4.44L, Hemoglobin 15.4, Hematocrit 46.0, Mean Corpuscular Volume 104H, Mean Corpuscular Hemoglobin 34.7H, Mean Corpuscular Hemoglobin Concent 33.5, Red Cell Distribution Width 11.3L, Platelet Count 208, Mean Platelet Volume 7.2, Neutrophils (%) (Auto) 61.0, Lymphocytes (%) (Auto) 26.9, Monocytes (%) (Auto) 8.6, Eosinophils (%) (Auto) 2.3, Basophils (%) (Auto) 1.2, Sodium Level 141, Potassium Level 3.8, Chloride Level 99, Carbon Dioxide Level 26, Anion Gap 16H, Blood Urea Nitrogen 5L, Creatinine 0.6L, Estimat Glomerular Filtration Rate > 60, Glucose Level 96, Calcium Level 8.4L, Magnesium Level 1.8, Total Bilirubin 0.4, Aspartate Amino Transf (AST/SGOT) 25, Alanine Aminotransferase (ALT/SGPT) 18, Alkaline Phosphatase 51, Total Protein 6.4L, Albumin 3.8, Globulin 2.6, Albumin/Globulin Ratio 1.4 Current Medications Medications (Trade) Dose Ordered Sig/Emili Route PRN Reason Start Time Stop Time Status Last Admin Dose Admin Acetaminophen (Tylenol) 650 mg Q4H PRN ORAL T>100.5 02/19/17 22:00 03/21/17 21:59 Albuterol/ Ipratropium (DuoNeb 0.5-3(2.5)mg/3ml) 3 ml Q4H PRN HHN Shortness of Breath 02/19/17 22:00 02/24/17 21:59 Diltiazem HCl (Cardizem) 30 mg Q8HR ORAL 02/19/17 22:00 03/21/17 21:59 02/20/17 05:55 Enalaprilat (Vasotec) 2.5 mg Q6H PRN IV sbp more than 160 02/19/17 21:45 03/21/17 21:44 Folic Acid (Folate) 1 mg DAILY ORAL 02/20/17 09:00 03/22/17 08:59 02/20/17 08:18 Morphine Sulfate (Morphine Sulfate) 2 mg Q4H PRN IVP Severe Pain (Pain Scale 7-10) 02/19/17 22:00 02/26/17 21:59 Multivitamins (Multivitamins) 1 tab DAILY ORAL 02/20/17 09:00 03/22/17 08:59 02/20/17 08:18 Nitroglycerin (Ntg) 0.4 mg Q5MIN X 3 DOSES PRN SL Prn Chest Pain 02/19/17 21:00 03/21/17 20:59 Ondansetron HCl (Zofran) 4 mg Q6H PRN IVP Nausea & Vomiting 02/19/17 21:45 03/21/17 21:44 Pantoprazole (Protonix) 40 mg DAILY ORAL 02/20/17 09:00 03/22/17 08:59 02/20/17 08:18 Polyethylene Glycol (Miralax) 17 gm DAILYPRN PRN ORAL Constipation 02/19/17 21:00 03/21/17 20:59 Temazepam (Restoril) 15 mg HSPRN PRN ORAL Insomnia 02/19/17 21:00 02/26/17 20:59 Thiamine HCl (Vitamin B1) 100 mg DAILY ORAL 02/20/17 09:00 03/22/17 08:59 02/20/17 08:18 [facility] Traore NP Feb 20, 2017 13:09
--- NOTE | 2017-02-22 09:18 | Discharge Summary ---
Discharge Summary Hospital Course Date of Admission Feb 17, 2017 at 14:40 Date of Discharge Feb 20, 2017 at 13:10 Admitting Diagnosis SUPRAVENTRICULAR TACHYCARDIA, CHEST PAIN HPI Ivana Lynch is a 51 year old male who was admitted on Feb 17, 2017 at 14:40 for Supraventricular Tachycardia,Chest Pain Hospital Course dc summary #[id number] Discharge Condition Upon Discharge: stable Discharge Disposition Patient was discharged to Home () [facility] Diagnoses: [facility]Alesia CLARK Feb 22, 2017 09:18
--- NOTE | 2017-02-22 11:36 | Cardiology Report ---
APPROVED REPORT EXAM: Two-dimensional and M-mode echocardiogram with Doppler and color Doppler. INDICATION SVT M-Mode DIMENSIONS IVSd1.1 (0.7-1.1cm)Left Atrium (MM)2.9 (1.6-4.0cm) LVDd4.7 (3.5-5.6cm)Aortic Root2.9 (2.0-3.7cm) PWd1.1 (0.7-1.1cm)Aortic Cusp Exc.1.5 (1.5-2.0cm) LVDs3.2 (2.5-4.0cm) PWs1.5 cm Other Information Technically limited study due to poor acoustical windows. Normal left ventricular chamber size, systolic function and wall motion to extent visualized. Left ventricular ejection fraction estimated to be 55 %. Mild left ventricular hypertrophy by 2-D. Anterior Echo-free space, may be due to pericardial fat or effusion. All other cardiac chamber sizes are within normal limits. Focal aortic valve sclerosis with adequate cusp excursion. Thickened mitral valve leaflets with normal excursion. Mitral annulus and aortic root calcification. Pulmonic valve not well visualized. Normal tricuspid valve structure. IVC dilated at 2.4 cm with slight physiologic collapse suggestive of increased RA pressure. A color flow and spectral Doppler study was performed and revealed: Trace mitral regurgitation. Mitral diastolic velocities suggest reduced left ventricular relaxation c/w mild LV diastolic dysfunction (Grade I ). Trace to mild tricuspid regurgitation. Tricuspid systolic velocities suggests peak right ventricular systolic pressure of 29 mmHg.
--- NOTE | 2017-02-23 01:48 | Discharge Summary 2 SIG ---
DATE OF ADMISSION: 02/17/2017 DATE OF DISCHARGE: 02/20/2017 REASON FOR ADMISSION: 51-year-old male was brought by paramedics for chest pain. In route, EKG showed supraventricular tachycardia, 160. The patient received adenosine and converted to sinus rhythm. Upon arrival to the emergency room, the patient had a very blunted affect and appeared to be mildly encephalopathic. The patient drinks alcohol on a regular basis. Alcohol level was 17. He denied nausea, vomiting, or abdominal pain. The patient however was not able to answer all the questions due pathology. EKG subsequently was repeated and revealed sinus rhythm with left anterior fascicular block. Troponin was negative. Patient was admitted for further management. ADMITTING DIAGNOSES: 1. Chest pain, rule out acute coronary syndrome. 2. Supraventricular tachycardia. 3. Encephalopathy. 4. Alcohol abuse. HOSPITAL COURSE: The patient was admitted to telemetry floor and started on IV bag with vitamins supplements ( thiamine, folic acid, multivitamin), Cardiology consult, Neurology consult, and GI consult were requested. 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 The patient was ruled out for acute myocardial infarction with serial negative troponin as well as the EKG, which revealed no acute ischemic changes. Subsequently, echocardiogram was ordered, which revealed preserved ejection fraction of 55%, mild left ventricular hypertrophy, and right ventricular systolic pressure of 29. The patient was started on Cardizem, dose lowered due to second-degree AV block. The agitator operator cleared for discharge. Neurologist seen and evaluated the patient. CT of the head was negative for acute intracranial pathology. The patient received supplemental thiamine, folic acid, multivitamin, and magnesium. Neurologist recommended to continue cardiac monitoring and observe for any paroxysmal events. Per neurologist, syncope likely due to alcohol intoxication. The patient was counseled to abstain from alcohol and join alcoholic anonymous meetings. Gastrointestinal specialist was consulted. Initially elevated AST, but trending down to normal in few days likely secondary to alcohol abuse. The patient was stable for discharge. The patient status post banana bag and started on oral thiamine, folic acid, and multivitamins. Magnesium level was stable. LFTs stable after trending down. Antiemetic provided as needed. Able to tolerate diet. The patient worked with physical and occupational therapists , stable. Counseled on abstinence from alcohol abuse and referral to alcoholic anonymous. Nicotine patch was offered, but patient declined, not ready to quit as per patient. The patient was stable for discharge. DISCHARGE DIAGNOSES: 1. Chest pain, possibly due to supraventricular tachycardia. 2. 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 3. Acute toxic encephalopathy (due to alcohol intoxication). 4. Syncope secondary to alcohol intoxication. 5. History of alcohol abuse. 6. Arteriovenous block, Wenckebach. 7. Nicotine dependency. 8. Possible depression. . DISCHARGE MEDICATIONS: List of medication given to the patient. DISCHARGE INSTRUCTIONS: The patient was discharged home. Counseled on abstinence from alcohol and referral to alcoholic anonymous group meetings. James Mcmillan D.O. A[facility]) N.PJose DR: PHILIP JOB#: [id number] CC: KENDALL
== END 2017-02-20 13:10 | disposition home or self-care (01) | DRG 201 ==
LOC: EDBD 13:30 → EMR 14:01 → 2E 14:40 → EDBEDREQ 15:42 → 4E 02-19 20:55
DX: I47.1 Supraventricular tachycardia (principal); G92 Toxic encephalopathy; I44.1 Atrioventricular block, second degree; F10.129 Alcohol abuse with intoxication, unspecified; R07.9 Chest pain, unspecified; F17.200 Nicotine dependence, unspecified, uncomplicated; R55 Syncope and collapse; S16.1XXA Strain of muscle, fascia and tendon at neck level, initial encounter; S39.012A Strain of muscle, fascia and tendon of lower back, initial encounter; X58.XXXA Exposure to other specified factors, initial encounter
CPT/HCPCS: 36415; 70450; 71010; 80048; 80053; 80061; 80300; 80329; 82140; 82550; 82553; 82962; 83735; 83880; 84439; 84443; 84484; 85025; 85610; 85730; 86140; 93005; 93306; 94664; 94760; 97803; J2405; J7620

== ENCOUNTER 2018-01-19 14:29 | Inpatient (IN) | payer MEDICAID, OTHER ==
[~2018-01-19] VITALS: Ht 165.1 cm; Wt 67.6 kg
[2018-01-19] MEDS ORDERED: NKM (14:35)
[2018-01-19 14:41] VITALS: BP 152/93
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
[2018-01-19 15:28] LABS: BASOPHILS % (AUTO) 0.8 % (0.0-2.0); EOSINOPHILS % (AUTO) 0.5 % (0.0-3.0); HEMATOCRIT 48.3 % (42.0-52.0); HEMOGLOBIN 16.8 G/DL (14.2-18.0); LYMPHOCYTES % (AUTO) 15.3 % (20.0-45.0); MEAN CORPUSCULAR VOLUME 102 FL (80-99); NEUTROPHILS % (AUTO) 77.4 % (45.0-75.0); PLATELET COUNT 211 K/UL (150-450); RED BLOOD COUNT 4.75 M/UL (4.70-6.10); RED CELL DISTRIBUTION WIDTH 11.3 % (11.6-14.8); WHITE BLOOD COUNT 14.8 K/UL (4.8-10.8)
[2018-01-19 15:36] LABS: ANION GAP 10 mmol/L (5-15); BLOOD UREA NITROGEN 4 mg/dL (7-18); CARBON DIOXIDE 26 MMOL/L (21-32); CHLORIDE 100 MMOL/L (98-107); CREATININE 0.9 MG/DL (0.55-1.30); POTASSIUM 3.7 MMOL/L (3.5-5.1); SODIUM 136 MMOL/L (136-145)
[2018-01-19 15:39] LABS: INR 0.9 (0.9-1.1)
[2018-01-19 15:40] LABS: APPEARANCE,URINE CLEAR; BILIRUBIN, URINE NEGATIVE (NEGATIVE); COLOR,URINE PALE YELLOW; GLUCOSE, URINE (UA) NEGATIVE (NEGATIVE); KETONES,URINE NEGATIVE (NEGATIVE); LEUKOCYTE ESTERASE ,URINE NEGATIVE (NEGATIVE); NITRITE,URINE NEGATIVE (NEGATIVE); PH,URINE 7 (4.5-8.0); PROTEIN,URINE NEGATIVE (NEGATIVE); UROBILINOGEN,URINE NORMAL MG/DL (0.0-1.0)
[2018-01-19 15:51] LABS: ALANINE AMINOTRANSFERASE 51 U/L (12-78); ALBUMIN 3.5 G/DL (3.4-5.0); ALBUMIN/GLOBULIN RATIO 0.8 (1.0-2.7); ALKALINE PHOSPHATASE 64 U/L (46-116); ASPARTATE AMINO TRANSFERASE 108 U/L (15-37); BILIRUBIN,TOTAL 0.3 MG/DL (0.2-1.0); CKMB 0.8 NG/ML (0.0-3.6); CREATINE KINASE 113 U/L (26-308)
--- NOTE | 2018-01-19 16:21 | Diagnostic Imaging Report ---
Indication: Chest pain Technique: One view of the chest Comparison: 02/17/2017 Findings: There is atelectasis of the left lung base. The lungs and pleural spaces otherwise clear. Heart size is normal Impression: Left basilar atelectasis. No acute process otherwise
[2018-01-19 17:00] VITALS: BP 144/96
[2018-01-19] MEDS ORDERED: Aspirin Baby 81mg ORAL ONE (18:15)
[2018-01-19 18:30] VITALS: BP 142/84
[2018-01-19 19:30] VITALS: BP 131/99
[2018-01-19 21:30] VITALS: BP 142/92
[2018-01-19 23:00] VITALS: BP 127/88
[2018-01-20 01:00] VITALS: BP 135/83
[2018-01-20 02:30] VITALS: BP 116/69
[2018-01-20] MEDS ORDERED: Morphine Sulfate 2mg/ml Inj IVP PRN (04:00)
[2018-01-20] MEDS: D5 1/2NS 1,000 ML IV SCH ×2 (05:25→21:43)
[2018-01-20 06:18] LABS: BASOPHILS % (AUTO) 0.8 % (0.0-2.0); EOSINOPHILS % (AUTO) 0.4 % (0.0-3.0); HEMATOCRIT 47.1 % (42.0-52.0); LYMPHOCYTES % (AUTO) 16.8 % (20.0-45.0); MEAN CORPUSCULAR VOLUME 102 FL (80-99); MONOCYTES % (AUTO) 7.6 % (1.0-10.0); NEUTROPHILS % (AUTO) 74.5 % (45.0-75.0); PLATELET COUNT 187 K/UL (150-450); RED BLOOD COUNT 4.63 M/UL (4.70-6.10); RED CELL DISTRIBUTION WIDTH 11.3 % (11.6-14.8); WHITE BLOOD COUNT 12.1 K/UL (4.8-10.8)
[2018-01-20 06:38] LABS: ANION GAP 11 mmol/L (5-15); BLOOD UREA NITROGEN 5 mg/dL (7-18); CALCIUM 9.2 MG/DL (8.5-10.1); CARBON DIOXIDE 30 MMOL/L (21-32); CHLORIDE 97 MMOL/L (98-107); CREATININE 0.7 MG/DL (0.55-1.30); POTASSIUM 3.2 MMOL/L (3.5-5.1); SODIUM 138 MMOL/L (136-145)
[2018-01-20 08:00] VITALS: BP 129/67
[2018-01-20] MEDS: Metoprolol Succinate XL 25mg tab ORAL SCH (09:34)
[2018-01-20 12:00] VITALS: BP 138/65
--- NOTE | 2018-01-20 15:30 | History and Physical Report ---
DATE OF ADMISSION: 01/19/2018 APPROXIMATE TIME: 7 a.m. ATTENDING PHYSICIAN: James Mcmillan D.O. BUCKRAM SEWER: Tony Spencer M.D. CHIEF COMPLAINT: Chest pain. BRIEF HISTORY: The patient is a 53-year-old male, who lives at home, presents to [facility] ER last night with history of increased chest pain x3 days, intermittent, sharp, no radiation, and substernal. No loss of consciousness. No shortness of breath. No nausea, vomiting, or diarrhea. The patient in the ER had this pain intermittently and was diagnosed as such and admitted to [facility] for further care. Currently, sleeping in bed, slight chest pain, no complaints. REVIEW OF SYSTEMS: Slight chest pain. Slight short of breath. No nausea, vomiting, or diarrhea. PAST MEDICAL HISTORY: Nothing. PAST SURGICAL HISTORY: Abdominal surgery ALLERGIES: Denies. MEDICATIONS: Include morphine, Tylenol, and aspirin. SOCIAL HISTORY: Positive smoke. Positive alcohol. No intravenous drug use. FAMILY HISTORY: Noncontributory. PHYSICAL EXAMINATION: GENERAL: Calm in bed, oriented x3, in no acute distress. VITAL SIGNS: Temperature is 98, pulse 67, respirations 14, and blood pressure 116/69. CARDIOVASCULAR: No murmur. LUNGS: Distant and clear. ABDOMEN: Bowel sounds positive. Nontender. Nondistended. EXTREMITIES: No cyanosis, clubbing, or edema. NEUROLOGIC: The patient moves all extremities, slightly weak. LABORATORY DATA: White count 12, otherwise CBC is normal. Potassium 3.2, chloride 97, and BUN 5. INR is 0.9 and PTT is 25. Urine tox is negative. Urinalysis is negative. ASSESSMENT: 1. Chest pain. 2. Leukocytosis. 3. Hypokalemia. PLAN: Continue previous medications. Troponin q.8 h. x3. EKG in the morning. Morphine p.r.n. Replace potassium p.r.n. Antibiotic per Infectious Diseases p.r.n. Dr. Spencer, Dr. Ennis, and Dr. Pelayo, to consult. I will continue to follow this patient's CBC and BMP in the morning. James Mcmillan D.O. DR: BINH JOB#: [id number] CC:
[2018-01-20 16:00] VITALS: BP 128/75
--- NOTE | 2018-01-20 19:12 | Consultation ---
Consult Note Consult Note ID DIC # [id number] JOHNSON SUE M.D. Jan 20, 2018 19:12
--- NOTE | 2018-01-20 19:32 | Cardiology Progress Note ---
Assessment/Plan Assessment/Plan The patient is seen and examined, full consult note will be dictated shortly. Objective Last 24 Hour Vital Signs Date Time Temp Pulse Resp B/P (MAP) Pulse Ox O2 Delivery O2 Flow Rate FiO2 01/20/18 16:00 67 01/20/18 16:00 98.4 68 19 128/75 98 Room Air 98.4 01/20/18 12:00 97.9 68 18 138/65 99 Room Air 97.9 01/20/18 12:00 69 01/20/18 09:34 68 129/67 01/20/18 08:00 68 01/20/18 08:00 97.7 68 20 129/67 98 Room Air 97.7 01/20/18 04:00 67 01/20/18 02:45 98.1 67 14 116/69 99 Room Air 98.1 01/20/18 02:30 98.1 67 14 116/69 99 Room Air 98.1 01/20/18 01:00 97.9 83 16 135/83 97 Room Air 97.9 01/19/18 23:00 88 18 127/88 97 Room Air 01/19/18 21:30 70 16 142/92 99 Room Air Intake and Output 01/19/18 01/20/18 19:00 07:00 Intake Total 620 ml Output Total 600 ml 200 ml Balance -600 ml 420 ml Intake Oral 500 ml IV Total 120 ml Output Urine Total 600 ml 200 ml # Voids 1 1 Laboratory Tests Test 01/20/18 01:20 01/20/18 05:45 01/20/18 12:50 01/20/18 13:35 Troponin I 0.118 ng/mL (0.000-0.056) 0.069 ng/mL (0.000-0.056) 0.063 ng/mL (0.000-0.056) White Blood Count 12.1 K/UL (4.8-10.8) H Red Blood Count 4.63 M/UL (4.70-6.10) L Hemoglobin 17.0 G/DL (14.2-18.0) Hematocrit 47.1 % (42.0-52.0) Mean Corpuscular Volume 102 FL (80-99) H Mean Corpuscular Hemoglobin 36.7 PG (27.0-31.0) H Mean Corpuscular Hemoglobin Concent 36.1 G/DL (32.0-36.0) H Red Cell Distribution Width 11.3 % (11.6-14.8) L Platelet Count 187 K/UL (150-450) Mean Platelet Volume 8.0 FL (6.5-10.1) Neutrophils (%) (Auto) 74.5 % (45.0-75.0) Lymphocytes (%) (Auto) 16.8 % (20.0-45.0) L Monocytes (%) (Auto) 7.6 % (1.0-10.0) Eosinophils (%) (Auto) 0.4 % (0.0-3.0) Basophils (%) (Auto) 0.8 % (0.0-2.0) Sodium Level 138 MMOL/L (136-145) Potassium Level 3.2 MMOL/L (3.5-5.1) L Chloride Level 97 MMOL/L (98-107) L Carbon Dioxide Level 30 MMOL/L (21-32) Anion Gap 11 mmol/L (5-15) Blood Urea Nitrogen 5 mg/dL (7-18) L Creatinine 0.7 MG/DL (0.55-1.30) Estimat Glomerular Filtration Rate > 60 mL/min (>60) Glucose Level 100 MG/DL (74-106) Calcium Level 9.2 MG/DL (8.5-10.1) Urine Random Total Protein 31 MG/DL (< 11.9) H Urine Creatinine 247.2 MG/DL (30.0-125.0) H Urine Potassium Timed 120 mmol/L (12-62) H HEMALATHA DALEY Jan 20, 2018 19:32
[2018-01-20 20:00] VITALS: BP 138/89
--- NOTE | 2018-01-20 20:01 | General Progress Note ---
Progress Note Progress Note [id number] full note dictated GENIE ANDREW Jan 20, 2018 20:01
[2018-01-20 23:21] LABS: BILIRUBIN, URINE NEGATIVE (NEGATIVE); GLUCOSE, URINE (UA) NEGATIVE (NEGATIVE); KETONES,URINE NEGATIVE (NEGATIVE); LEUKOCYTE ESTERASE ,URINE 1+ (NEGATIVE); NITRITE,URINE NEGATIVE (NEGATIVE); PH,URINE 9 (4.5-8.0); PROTEIN,URINE 2+ (NEGATIVE); UROBILINOGEN,URINE NORMAL MG/DL (0.0-1.0)
[2018-01-20 23:22] LABS: APPEARANCE,URINE CLEAR; COLOR,URINE YELLOW
[2018-01-21] VITALS: BP 121/78
--- NOTE | 2018-01-21 00:15 | Consultation ---
DATE OF CONSULTATION: 01/20/2018 INFECTIOUS DISEASES CONSULTATION CONSULTING PHYSICIAN: Devante Pelayo M.D. REFERRING PHYSICIAN: Cailin Medel M.D. REASON FOR CONSULTATION: Evaluation of the patient for leukocytosis, possible sepsis, UTI, antibiotic management. HISTORY OF PRESENT ILLNESS: The patient is a 53-year-old male, who lives at home, was brought to the hospital due to chest pain. The patient was found to have leukocytosis. The patient has been complaining of burning sensation with urination. Infectious Disease consultation has been requested for further evaluation of the of the patient's antibiotic management. The patient overall seems to be poor historian. Much of the information gathered through chart and speaking to staff. PAST MEDICAL HISTORY: 1. History of CT/palpitation. 2. History of chronic constipation. 3. Depression. 4. History of alcohol abuse. MEDICATIONS: Off of antibiotics currently. SOCIAL HISTORY: Alcohol abuse and smoking. FAMILY HISTORY: Noncontributory. REVIEW OF SYSTEMS: HEENT: No recent change in vision or hearing. PULMONARY: No cough. CARDIOVASCULAR: As mentioned above. GASTROINTESTINAL/ABDOMEN: The patient has nausea and vomiting earlier today. No diarrhea. GENITOURINARY: Dysuria. MUSCULOSKELETAL: No pain in extremity. PHYSICAL EXAMINATION: VITAL SIGNS: Temperature 98 degrees, blood pressure 128/75, pulse 65, respiratory rate 18. HEENT: No pale conjunctiva. No icterus. NECK: No lymphadenopathy. CHEST: Clear. HEART: S1 and S2. ABDOMEN: Soft, nontender. No flank tenderness. EXTREMITIES: No cyanosis. NEUROLOGIC: Awake and alert. LABORATORY AND DIAGNOSTIC DATA: WBC of 12.01, at time of admission was 14.8, platelets 187. UA appears to be normal yesterday. BUN 5, creatinine 0.7. Cardiac enzymes 0.118. Chest x-ray atelectasis, no acute process. ASSESSMENT: The patient is a 53-year-old male with: 1. Leukocytosis, mostly due to acute distress. 2. Rule out urine tract infection despite of unremarkable urinalysis. 3. Leukocytosis. 4. Afebrile. 5. Chest pain. PLAN: 1. We will send the urine. 2. We will start the patient on Levaquin. 3. Monitor CBC. 4. Monitor BMP. 5. Repeat UA and urine culture. 6. Monitor the patient's clinical course and laboratories and based on those, we will do further recommendation. Thank you, Dr. Medel, for allowing me to participate in the care of this patient. I will follow the patient with you during this hospitalization. Devante Pelayo M.D. DR: Jayne JOB#: [id number] CC:
--- NOTE | 2018-01-21 00:30 | Consultation ---
DATE OF CONSULTATION: 01/20/2018 NEPHROLOGY CONSULTATION REFERRING PHYSICIAN: James Mcmillan D.O. REASON FOR CONSULTATION: Hypokalemia. HISTORY OF PRESENT ILLNESS: The patient is a pleasant 53-year-old male who has no past medical history, who presented to [facility], complaining of increasing chest pain for three days which he describes his chest pain as an intermittent chest pain, nonradiating, substernal, was not associated with nausea, vomiting, or palpitations. The patient consequently was admitted in the hospital with a diagnosis of acute coronary syndrome. I was called for management of renal disease and electrolyte imbalance. PAST MEDICAL HISTORY: None. PAST SURGICAL HISTORY: History of abdominal surgery. MEDICATIONS: Home medications including Tylenol and aspirin. ALLERGIES: No known drug allergies. FAMILY HISTORY: Negative for any history of premature heart disease. SOCIAL HISTORY: He has a long history of smoking and drinks alcohol occasionally. No IV drugs. REVIEW OF SYSTEMS: GENERAL: He complained of generalized weakness. Denied any fever, chills, or night sweats. HEAD AND NECK: Denies any dysphagia, odynophagia, blurry vision, headache, or neck stiffness. PULMONARY: No shortness of breath. No cough or sputum. CARDIOVASCULAR: Complained of sharp chest pain, 8/10, nonradiating, not associated with palpitation or diaphoresis. GASTROINTESTINAL: Denies any nausea, vomiting, diarrhea, hematemesis, or hematochezia. GENITOURINARY: Denies any dysuria, frequency, or hematuria. MUSCULOSKELETAL: Denies any weakness or numbness. PHYSICAL EXAMINATION: VITAL SIGNS: The patient has temperature of 98 degrees, pulse of 67 and blood pressure of 116/69. HEAD AND NECK: No JVP. No LAD. No thyromegaly. Extraocular movements intact. Pupils are reactive to light and accommodation. LUNGS: Clear to auscultation. CARDIAC: Regular rate and rhythm. S1 and S2. No murmur. No rub. ABDOMEN: Soft, nontender and nondistended. EXTREMITIES: No edema. No clubbing. No cyanosis. LABORATORY AND DIAGNOSTIC DATA: Sodium 138, potassium 3.2, chloride 97, bicarbonate 30, BUN of 5, creatinine of 0.7 and glucose of 100. Calcium of 9.2. CBC revealed WBC count of 12.5, hemoglobin of 17, hematocrit of 47 and platelet count of 187. UA revealed specific gravity of 1.010, pH of 7, no WBC, no RBC, no protein. Urine toxicology screen is negative. ASSESSMENT: 1. Hypokalemia, the etiology is GI versus renal loss. 2. Acute coronary syndrome. PLAN: Plan for the patient to check the urine sodium and urine creatinine. Check the urine and urine osmolality. If urine potassium is low, most likely the source of loss is GI. Replace the potassium. Check the magnesium level. Monitor renal function and electrolytes closely. Again, I would like to thank, Dr. James Mcmillan, for allowing me to participate in the care of this patient. Rosemarie Ennis M.D. DR: ED JOB#: [id number] CC:
[2018-01-21 04:00] VITALS: BP 134/90
[2018-01-21 04:17] LABS: BASOPHILS % (AUTO) 0.6 % (0.0-2.0); EOSINOPHILS % (AUTO) 0.3 % (0.0-3.0); HEMATOCRIT 45.1 % (42.0-52.0); HEMOGLOBIN 16.5 G/DL (14.2-18.0); LYMPHOCYTES % (AUTO) 14.2 % (20.0-45.0); MEAN CORPUSCULAR VOLUME 101 FL (80-99); MONOCYTES % (AUTO) 8.7 % (1.0-10.0); NEUTROPHILS % (AUTO) 76.3 % (45.0-75.0); PLATELET COUNT 187 K/UL (150-450); RED BLOOD COUNT 4.46 M/UL (4.70-6.10); RED CELL DISTRIBUTION WIDTH 11.2 % (11.6-14.8); WHITE BLOOD COUNT 14.8 K/UL (4.8-10.8)
[2018-01-21 04:54] LABS: ALANINE AMINOTRANSFERASE 34 U/L (12-78); ALBUMIN 3.2 G/DL (3.4-5.0); ALBUMIN/GLOBULIN RATIO 0.8 (1.0-2.7); ALKALINE PHOSPHATASE 51 U/L (46-116); ANION GAP 8 mmol/L (5-15); ASPARTATE AMINO TRANSFERASE 33 U/L (15-37); BILIRUBIN,TOTAL 0.6 MG/DL (0.2-1.0); BLOOD UREA NITROGEN 6 mg/dL (7-18); CALCIUM 8.9 MG/DL (8.5-10.1); CARBON DIOXIDE 29 MMOL/L (21-32); CHLORIDE 96 MMOL/L (98-107); CREATININE 0.8 MG/DL (0.55-1.30); POTASSIUM 3.2 MMOL/L (3.5-5.1); SODIUM 133 MMOL/L (136-145)
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
[2018-01-21 08:00] VITALS: BP 153/88
[2018-01-21] MEDS: Metoprolol Succinate XL 25mg tab ORAL SCH (09:08)
--- NOTE | 2018-01-21 09:42 | General Progress Note ---
Assessment/Plan Problem List: (1) Chest pain ICD Codes: R07.9 - Chest pain, unspecified SNOMED: 62784399 (2) UTI (urinary tract infection) ICD Codes: N39.0 - Urinary tract infection, site not specified SNOMED: 18748259 (3) Leukocytosis ICD Codes: D72.829 - Elevated white blood cell count, unspecified SNOMED: 276593409, 507662134 (4) Hypokalemia ICD Codes: E87.6 - Hypokalemia SNOMED: 63735126 Status: unchanged Assessment/Plan ot pt diet abx cardio neph f/u cbc bmp am Subjective Constitutional: Reports: weakness Allergies: Coded Allergies: No Known Allergies (Unverified , 10/08/13) All Systems: reviewed and negative except above Subjective nop chest pain this am Objective Last 24 Hour Vital Signs Date Time Temp Pulse Resp B/P (MAP) Pulse Ox O2 Delivery O2 Flow Rate FiO2 01/21/18 09:08 69 153/88 01/21/18 04:00 62 01/21/18 04:00 98.6 70 20 134/90 100 Room Air 98.6 01/21/18 00:00 98.2 70 20 121/78 98 Room Air 98.2 01/21/18 00:00 65 01/20/18 20:00 67 01/20/18 20:00 98.0 75 19 138/89 98 Room Air 98.0 01/20/18 16:00 67 01/20/18 16:00 98.4 68 19 128/75 98 Room Air 98.4 01/20/18 12:00 97.9 68 18 138/65 99 Room Air 97.9 01/20/18 12:00 69 Intake and Output 01/20/18 01/21/18 19:00 07:00 Intake Total 960 ml 777 ml Output Total 50 ml Balance 910 ml 777 ml Intake Oral 240 ml IV Total 720 ml 777 ml Emesis 50 ml # Voids 3 4 # Bowel Movements 2 Laboratory Tests 01/20/18 12:50: Troponin I 0.063H 01/20/18 13:35: Urine Random Total Protein 31H, Urine Creatinine 247.2H, Urine Potassium Timed 120H 01/20/18 21:00: Troponin I 0.046 01/20/18 22:10: Urine Color Yellow, Urine Appearance Clear, Urine pH 9, Urine Specific [place] 1.010, Urine Protein 2+H, Urine Glucose (UA) Negative, Urine Ketones Negative, Urine Occult Blood Negative, Urine Nitrite Negative, Urine Bilirubin Negative, Urine Urobilinogen Normal, Urine Leukocyte Esterase 1+H, Urine RBC 0-2H, Urine WBC 0-2, Urine Squamous Epithelial Cells Few, Urine Bacteria Few 01/21/18 03:40: White Blood Count 14.8H, Red Blood Count 4.46L, Hemoglobin 16.5, Hematocrit 45.1 , Mean Corpuscular Volume 101H, Mean Corpuscular Hemoglobin 36.9H, Mean Corpuscular Hemoglobin Concent 36.5H, Red Cell Distribution Width 11.2L, Platelet Count 187, Mean Platelet Volume 8.0, Neutrophils (%) (Auto) 76.3H, Lymphocytes (%) (Auto) 14.2L, Monocytes (%) (Auto) 8.7, Eosinophils (%) (Auto) 0.3, Basophils (%) (Auto) 0.6, Sodium Level 133L, Potassium Level 3.2L, Chloride Level 96L, Carbon Dioxide Level 29, Anion Gap 8, Blood Urea Nitrogen 6L , Creatinine 0.8, Estimat Glomerular Filtration Rate > 60, Glucose Level 117H, Calcium Level 8.9, Total Bilirubin 0.6, Aspartate Amino Transf (AST/SGOT) 33, Alanine Aminotransferase (ALT/SGPT) 34, Alkaline Phosphatase 51, Total Protein 7.2, Albumin 3.2L, Globulin 4.0, Albumin/Globulin Ratio 0.8L, Amylase Level 62, Lipase 139 Height (Feet): 5 Height (Inches): 5.00 Weight (Pounds): 149 General Appearance: lethargic EENT: normal ENT inspection Neck: normal alignment Cardiovascular: normal peripheral pulses, normal rate, regular rhythm Respiratory/Chest: chest wall non-tender, lungs clear, normal breath sounds Abdomen: normal bowel sounds, non tender, soft Extremities: normal inspection Edema: no edema noted Arm (L), no edema noted Arm (R), no edema noted Leg (L), no edema noted Leg (R), no edema noted Pedal (L), no edema noted Pedal (R), no edema noted Generalized Neurologic: responsive, motor weakness Skin: normal pigmentation, warm/dry BRET CASTRO Jan 21, 2018 09:42
[2018-01-21] MEDS ORDERED: D5NS 1,000 ML IV SCH (10:00)
--- NOTE | 2018-01-21 10:45 | Diagnostic Imaging Report ---
Indication: Abdominal pain Comparison: None Single view of the abdomen obtained Findings: Bowel gas pattern is nonspecific. No mass, ectopic calcifications, or abnormal gas collections are identified. The bones are unremarkable. Impression: No acute findings
--- NOTE | 2018-01-21 11:29 | General Progress Note ---
Assessment/Plan Problem List: (1) Constipation ICD Codes: K59.00 - Constipation, unspecified SNOMED: 23350727 (2) ETOH abuse ICD Codes: F10.10 - Alcohol abuse, uncomplicated SNOMED: 24210216, 30722040 (3) Chest pain ICD Codes: R07.9 - Chest pain, unspecified SNOMED: 38896532 Assessment/Plan kub reviewed start diet laxative fu cardiology fu labs Subjective ROS Limited/Unobtainable: Yes Allergies: Coded Allergies: No Known Allergies (Unverified , 10/08/13) Subjective no event over night Objective Last 24 Hour Vital Signs Date Time Temp Pulse Resp B/P (MAP) Pulse Ox O2 Delivery O2 Flow Rate FiO2 01/21/18 09:08 69 153/88 01/21/18 08:00 67 01/21/18 08:00 97.0 69 21 153/88 97 Room Air 97.0 01/21/18 04:00 62 01/21/18 04:00 98.6 70 20 134/90 100 Room Air 98.6 01/21/18 00:00 98.2 70 20 121/78 98 Room Air 98.2 01/21/18 00:00 65 01/20/18 20:00 67 01/20/18 20:00 98.0 75 19 138/89 98 Room Air 98.0 01/20/18 16:00 67 01/20/18 16:00 98.4 68 19 128/75 98 Room Air 98.4 01/20/18 12:00 97.9 68 18 138/65 99 Room Air 97.9 01/20/18 12:00 69 Intake and Output 01/20/18 01/21/18 19:00 07:00 Intake Total 960 ml 777 ml Output Total 50 ml Balance 910 ml 777 ml Intake Oral 240 ml IV Total 720 ml 777 ml Emesis 50 ml # Voids 3 4 # Bowel Movements 2 Laboratory Tests 01/20/18 12:50: Troponin I 0.063H 01/20/18 13:35: Urine Random Total Protein 31H, Urine Creatinine 247.2H, Urine Potassium Timed 120H 01/20/18 21:00: Troponin I 0.046 01/20/18 22:10: Urine Color Yellow, Urine Appearance Clear, Urine pH 9, Urine Specific [place] 1.010, Urine Protein 2+H, Urine Glucose (UA) Negative, Urine Ketones Negative, Urine Occult Blood Negative, Urine Nitrite Negative, Urine Bilirubin Negative, Urine Urobilinogen Normal, Urine Leukocyte Esterase 1+H, Urine RBC 0-2H, Urine WBC 0-2, Urine Squamous Epithelial Cells Few, Urine Bacteria Few 01/21/18 03:40: White Blood Count 14.8H, Red Blood Count 4.46L, Hemoglobin 16.5, Hematocrit 45.1 , Mean Corpuscular Volume 101H, Mean Corpuscular Hemoglobin 36.9H, Mean Corpuscular Hemoglobin Concent 36.5H, Red Cell Distribution Width 11.2L, Platelet Count 187, Mean Platelet Volume 8.0, Neutrophils (%) (Auto) 76.3H, Lymphocytes (%) (Auto) 14.2L, Monocytes (%) (Auto) 8.7, Eosinophils (%) (Auto) 0.3, Basophils (%) (Auto) 0.6, Sodium Level 133L, Potassium Level 3.2L, Chloride Level 96L, Carbon Dioxide Level 29, Anion Gap 8, Blood Urea Nitrogen 6L , Creatinine 0.8, Estimat Glomerular Filtration Rate > 60, Glucose Level 117H, Calcium Level 8.9, Total Bilirubin 0.6, Aspartate Amino Transf (AST/SGOT) 33, Alanine Aminotransferase (ALT/SGPT) 34, Alkaline Phosphatase 51, Total Protein 7.2, Albumin 3.2L, Globulin 4.0, Albumin/Globulin Ratio 0.8L, Amylase Level 62, Lipase 139 Height (Feet): 5 Height (Inches): 5.00 Weight (Pounds): 149 General Appearance: no apparent distress EENT: normal ENT inspection Neck: supple Cardiovascular: normal rate Respiratory/Chest: lungs clear Abdomen: normal bowel sounds, non tender, soft Extremities: non-tender ONEL CHERRY Jan 21, 2018 11:29
[2018-01-21 12:00] VITALS: BP 141/79
[2018-01-21] MEDS ORDERED: D5 1/2NS 1000ml IV ONE (12:59)
--- NOTE | 2018-01-21 23:56 | Cardiology Progress Note ---
Assessment/Plan Assessment/Plan 1. 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 2. Hypokalemia, K supplements. 3. Elevated troponin I level is likely due to tachyarrhythmias, CP free, no ECG changes suggestive of ischemia, no wall motion abnormalities. Subjective Subjective No more episodes of SVT noted. Currently SR at 63. Objective Last 24 Hour Vital Signs Date Time Temp Pulse Resp B/P (MAP) Pulse Ox O2 Delivery O2 Flow Rate FiO2 01/21/18 12:00 97.5 63 20 141/79 99 Room Air 97.5 01/21/18 09:08 69 153/88 01/21/18 08:00 67 01/21/18 08:00 97.0 69 21 153/88 97 Room Air 97.0 01/21/18 04:00 62 01/21/18 04:00 98.6 70 20 134/90 100 Room Air 98.6 01/21/18 00:00 98.2 70 20 121/78 98 Room Air 98.2 01/21/18 00:00 65 Intake and Output 01/20/18 01/21/18 19:00 07:00 Intake Total 960 ml 777 ml Output Total 50 ml Balance 910 ml 777 ml Intake Oral 240 ml IV Total 720 ml 777 ml Emesis 50 ml # Voids 3 4 # Bowel Movements 2 2D Echo: LVEF 65%, Grade I LVDD, RVSP 17 mmHg Laboratory Tests Test 01/21/18 03:40 White Blood Count 14.8 K/UL (4.8-10.8) H Red Blood Count 4.46 M/UL (4.70-6.10) L Hemoglobin 16.5 G/DL (14.2-18.0) Hematocrit 45.1 % (42.0-52.0) Mean Corpuscular Volume 101 FL (80-99) H Mean Corpuscular Hemoglobin 36.9 PG (27.0-31.0) H Mean Corpuscular Hemoglobin Concent 36.5 G/DL (32.0-36.0) H Red Cell Distribution Width 11.2 % (11.6-14.8) L Platelet Count 187 K/UL (150-450) Mean Platelet Volume 8.0 FL (6.5-10.1) Neutrophils (%) (Auto) 76.3 % (45.0-75.0) H Lymphocytes (%) (Auto) 14.2 % (20.0-45.0) L Monocytes (%) (Auto) 8.7 % (1.0-10.0) Eosinophils (%) (Auto) 0.3 % (0.0-3.0) Basophils (%) (Auto) 0.6 % (0.0-2.0) Sodium Level 133 MMOL/L (136-145) L Potassium Level 3.2 MMOL/L (3.5-5.1) L Chloride Level 96 MMOL/L (98-107) L Carbon Dioxide Level 29 MMOL/L (21-32) Anion Gap 8 mmol/L (5-15) Blood Urea Nitrogen 6 mg/dL (7-18) L Creatinine 0.8 MG/DL (0.55-1.30) Estimat Glomerular Filtration Rate > 60 mL/min (>60) Glucose Level 117 MG/DL (74-106) H Calcium Level 8.9 MG/DL (8.5-10.1) Total Bilirubin 0.6 MG/DL (0.2-1.0) Aspartate Amino Transf (AST/SGOT) 33 U/L (15-37) Alanine Aminotransferase (ALT/SGPT) 34 U/L (12-78) Alkaline Phosphatase 51 U/L (46-116) Total Protein 7.2 G/DL (6.4-8.2) Albumin 3.2 G/DL (3.4-5.0) L Globulin 4.0 g/dL Albumin/Globulin Ratio 0.8 (1.0-2.7) L Amylase Level 62 U/L (25-115) Lipase 139 U/L (73-393) Microbiology Date/Time Source Procedure Growth Status 01/20/18 22:10 Urine,Clean Catch Urine Culture - Preliminary NO GROWTH Resulted Objective HEENT: Atraumatic, normocephalic, EOMI, PERRLA.intact. NECK: No JVP, no carotid bruit. LUNGS: Clear to auscultation. CARDIAC: Regular rate and rhythm. Normal S1 and S2. No murmur, gallops or rubs. ABDOMEN: Soft, nontender and nondistended. EXTREMITIES: No edema. No clubbing. No cyanosis. HEMALATHA DALEY Jan 21, 2018 23:55
--- NOTE | 2018-01-22 16:03 | Cardiology Report ---
APPROVED REPORT EXAM: Two-dimensional and M-mode echocardiogram with Doppler and color Doppler. INDICATION Chest Pain M-Mode DIMENSIONS IVSd1.1 (0.7-1.1cm)Left Atrium (MM)2.8 (1.6-4.0cm) LVDd4.3 (3.5-5.6cm)Aortic Root3.5 (2.0-3.7cm) PWd0.9 (0.7-1.1cm)Aortic Cusp Exc.1.8 (1.5-2.0cm) IVSs1.6 cm LVDs4.0 (2.5-4.0cm) Technically difficult study due to poor acoustical windows. Normal left ventricular chamber size, systolic function and wall motion to extent visualized. Left ventricular ejection fraction estimated to be 60-65 %. Mild left ventricular hypertrophy by 2-D. No evidence of pericardial effusion All other cardiac chamber sizes are within normal limits. Focal aortic valve sclerosis with adequate cusp excursion. Mildly Thickened mitral valve leaflets with normal excursion. Mildly Mitral annulus and aortic root calcification. Pulmonic valve not well visualized. Normal tricuspid valve structure. IVC at normal size with physiologic collapse. . A color flow and spectral Doppler study was performed and revealed: No aortic regurgitation. Trcace mitral regurgitation. Mitral diastolic velocities suggest reduced left ventricular relaxation c/w mild LV diastolic dysfunction (Grade I ). Trace tricuspid regurgitation. Tricuspid systolic velocities suggests peak right ventricular systolic pressure of 17 mmHg No Pulmonic regurgitation present.
--- NOTE | 2018-01-22 16:04 | Cardiology Report ---
APPROVED REPORT EKG Measurement Heart [id number] Normal sinus rhythm Minimal voltage criteria for LVH, may be normal variant Junctional ST depression, probably abnormal Abnormal ECG
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
--- NOTE | 2018-01-25 09:25 | Discharge Summary ---
Discharge Summary Hospital Course Date of Admission Jan 19, 2018 at 19:16 Date of Discharge Jan 21, 2018 at 13:00 Admitting Diagnosis CHEST PAIN /ACS HPI Ivana Carney is a 53 year old male who was admitted on Jan 19, 2018 at 19 :16 for Chest Pain/Acute Coronary Syndrome Hospital Course dc summary # [id number] Discharge Discharge Disposition Patient signed AMA Discharge Diagnoses: Discharge Instructions Discharge Instructions Special Instructions I have been assigned to complete a D/C Summary on this account. I was not involved in the patient management Alesia Castle NP (Vanchtein) Jan 25, 2018 09:24
--- NOTE | 2018-01-26 01:00 | Discharge Summary 2 SIG ---
DATE OF ADMISSION: 01/19/2018 DATE OF SIGHING AGAINST MEDICAL ADVISE : 01/21/2018 REASON FOR ADMISSION: 53 years old male with past medical history of alcohol abuse, was brought to the emergency room by paramedics. The patient was noted to have a blunt affect and was minimally conversive. According to acid purifier, the patient reported chest pain and difficulty breathing half hour prior to arrival of paramedics. Per acid purifier, the patient was in SVT on arrival. He was given adenosine 6 mg with conversion to normal sinus rhythm. The patient stated that he had been well prior to the episode. Chest pain resolved. He denied recent illness, fever and chills. He admitted to tobacco and alcohol use. He denied illicit drug use. Upon evaluation in the emergency room, vital signs were stable except elevated diastolic blood pressure - 141/101. Urinalysis was negative for evidence of urinary tract infection. Urine toxicology screen was negative. Leukocytosis WBC -14.8, stable hemoglobin and hematocrit. Stable electrolytes. Troponin elevated - 0.118. ProBNP -15. EKG showed normal sinus rhythm, no acute ischemic changes. Chest x-ray revealed no acute cardiopulmonary disease. The patient was admitted with chest pain and supraventricular tachycardia. HOSPITAL COURSE: The patient admitted to telemetry floor. Cardiology consult was requested. 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 At this time, telemetry was stable. Low-dose of metoprolol was continued. The patient was advised to see primary care provider for referral to estate planning attorney for possible radiofrequency ablation of the rhythm. Serial troponin were minimally elevated with trend down. Last troponin negative. A slight elevation of troponin was most likely due to underlying tachycardia. It did not reflect any acute coronary syndrome. Echocardiogram revealed preserved ejection fraction of 60% to 65%, right ventricular systolic pressure of 17. Aspirin was added to existing medication regimen. Lipid panel was ordered. At the same time, Infectious Disease consult was called due to the leukocytosis. The patient was started on empiric antibiotic. Ordered to repeat urine culture for possible urinary tract infection. According to the Infectious Disease , leukocytosis was likely secondary to acute stress. Urine culture showed mixed Gram-positive organism. The patient was afebrile. Nephrology consult was requested for hypokalemia. Guest Experience Specialist followed the patient. Potassium was replaced. The etiology was a gastrointestinal versus renal loss. The patient with prior abdominal surgery. The patient developed nausea and vomiting and GI consult was requested to rule out possible ileus versus small bowel obstruction, given history of multiple abdominal surgery. The patient was made NPO. KUB revealed no evidence of bowel obstruction or ileus. Bowel regimen instituted, patient was started on Dulcolax suppository x1 along with meticulous bowel regimen. The patient started on diet and was able to tolerate it. Antiemetics were on board as needed. The patient was counseled on abstinence from the alcohol. Leukocytosis continued. On 01/21/2018, the patient decided to sign against medical advice. The risks and consequences of signing against medical advice were discussed with the patient. The patient refused to wait for call back from primary care provider. He verbalized understanding of risks and consequences of leaving the hospital against medical advice. He signed against medical advice form and left. FINAL DIAGNOSES: 1. 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 2. Elevated troponin, likely secondary to tachyarrhythmia. 3. Hypokalemia. 4. Alcohol abuse. 5. Constipation. 6. Leukocytosis. James Mcmillan D.O. I have been assigned to dictate discharge summary on this account and I was not involved in the patient's management. [facility]ia [facility] N[facility] DR: LISE JOB#: [id number] CC: KENDALL
--- NOTE | 2018-02-01 17:01 | Cardiology Report ---
APPROVED REPORT EKG Measurement Heart [id number] FL [id number] Normal sinus rhythm Possible Left atrial enlargement Junctional ST depression, probably normal Borderline ECG
== END 2018-01-21 13:00 | disposition left against medical advice (07) | DRG 201 ==
LOC: EDBD 14:29 → EMR 14:51 → 2W 19:16 → EDBEDREQ 01-20 02:02 → 2E 01-21 06:25
DX: I47.1 Supraventricular tachycardia (principal); N39.0 Urinary tract infection, site not specified; E87.6 Hypokalemia; R07.9 Chest pain, unspecified; F17.200 Nicotine dependence, unspecified, uncomplicated; K59.00 Constipation, unspecified
CPT/HCPCS: 36415; 71045; 74018; 80048; 80053; 80307; 81001; 81003; 82044; 82150; 82550; 82553; 82570; 83690; 83880; 84133; 84484; 85025; 85610; 85730; 87086; 93005; 93306; 99285; J2405; J8499

== ENCOUNTER 2019-04-21 11:26 | Emergency (ER) | payer OTHER ==
[~2019-04-21] VITALS: Ht 165.1 cm; Wt 68.9 kg
[2019-04-21 11:44] VITALS: BP 127/84
--- NOTE | 2019-04-21 11:50 | NUR ---
ED Nurse Note: pt c/o bi-lat ear pain for almost 2 weeks pt also states he has been having chest pain on and off. PT awaiting ermd eval.
--- NOTE | 2019-04-21 12:30 | NUR ---
ED Nurse Note: RECEIVED PT. FROM FAST TRACK. RCEIVED REPORT TO INITIATE BLOOD TESTS DUE TO PT.'S CARDIAC HX PROBLEM. PT. DENIES HAVING CP AT THIS TIME. PT. IS VERY COOPERATIVE.
[2019-04-21 12:40] LABS: BASOPHILS % (AUTO) 1.4 % (0.0-2.0); EOSINOPHILS % (AUTO) 1.6 % (0.0-3.0); HEMOGLOBIN 15.6 G/DL (14.2-18.0); LYMPHOCYTES % (AUTO) 31.1 % (20.0-45.0); MEAN CORPUSCULAR VOLUME 100 FL (80-99); MONOCYTES % (AUTO) 8.9 % (1.0-10.0); NEUTROPHILS % (AUTO) 57.1 % (45.0-75.0); PLATELET COUNT 275 K/UL (150-450); RED BLOOD COUNT 4.51 M/UL (4.70-6.10); RED CELL DISTRIBUTION WIDTH 10.9 % (11.6-14.8); WHITE BLOOD COUNT 9.1 K/UL (4.8-10.8)
--- NOTE | 2019-04-21 12:54 | Emergency Room Report ---
History of Present Illness General Chief Complaint: Earache Source: Patient Present Illness HPI 54-year-old male presents to ED for evaluation. Complaining of unable to hear for the last few days. States his ears feel "full". Eyes any pain. Denies any fevers or chills. Denies any sore throat or cough. Patient is also complaining of chest pain. States he's having pain on and off for the last few days. Denies any chest pain at this time. Denies any history of hypertension. Denies smoking or drug use. No other aggravating relieving factors. Denies any other associated symptoms Allergies: Coded Allergies: No Known Allergies (Unverified , 10/08/13) Patient History Past Medical History: other - SVT Past Surgical History: none Pertinent Family History: none Social History: Denies: smoking, alcohol use, drug use Immunizations: UTD Reviewed Nursing Documentation: PMH: Agreed; PSxH: Agreed Nursing Documentation-PMH Past Medical History: No History, Except For Hx Cardiac Problems: Yes - Palpitations, SVT, CP Hx Cancer: No Hx Gastrointestinal Problems: No Hx Neurological Problems: No Review of Systems All Other Systems: negative except mentioned in HPI Physical Exam Vital Signs Date Time Temp Pulse Resp B/P (MAP) Pulse Ox O2 Delivery O2 Flow Rate FiO2 04/21/19 11:38 98.1 82 18 127/84 (98) 98 Room Air Sp02 EP Interpretation: reviewed, normal General Appearance: no apparent distress, alert, GCS 15, non-toxic Head: normocephalic, atraumatic Eyes: bilateral eye normal inspection, bilateral eye PERRL ENT: hearing grossly normal, normal pharynx, no angioedema, normal voice, other - bilateral ear canal with cerumen impaction Neck: full range of motion, supple/symm/no masses Respiratory: chest non-tender, lungs clear, normal breath sounds, speaking full sentences Cardiovascular #1: regular rate, rhythm, no edema Cardiovascular #2: 2+ carotid (R), 2+ carotid (L), 2+ radial (R), 2+ radial (L) , 2+ dorsalis pedis (R), 2+ dorsalis pedis (L) Gastrointestinal: normal bowel sounds, non tender, soft, non-distended, no guarding, no rebound Rectal: deferred Genitourinary: normal inspection, no CVA tenderness Musculoskeletal: back normal, gait/station normal, normal range of motion, non- tender Neurologic: alert, oriented x3, responsive, motor strength/tone normal, sensory intact, speech normal Psychiatric: judgement/insight normal, memory normal, mood/affect normal, no suicidal/homicidal ideation Reflexes: 3+ bicep (R), 3+ bicep (L), 3+ tricep (R), 3+ tricep (L), 3+ knee (R) , 3+ knee (L) Skin: normal color, no rash, warm/dry, well hydrated Lymphatic: no adenopathy Medical Decision Making Diagnostic Impression: Primary Impression: Chest pain Qualified Codes: R07.9 - Chest pain, unspecified Additional Impression: Cerumen impaction Qualified Codes: H61.23 - Impacted cerumen, bilateral ER Course Hospital Course 54 yo M presents with fullness in both ears. also c/o chest pain Differential diagnoses include: Rib fracture, NJ/unstable angina, contusion, muscle strain Clinical course Patient placed on stretcher. After initial history and physical I ordered labs , EKG, chest x-ray. labs reviewed- all electrolytes normal, troponins negative, no leukocytosis, hemoglobin/hematocrit stable EKG - NSR, no acute ischemic changes interpreted by me Chest x-ray-no cardiomegaly, no rib fracture, no pneumothorax, no acute process Given negative troponin with symptoms for the last 2 days reassurance given to patient. Unlikely cardiac however patient has been seen here previously for SVT. Patient states he does not have a PMD. We'll provide referrals Patient does have significant cerumen impaction in both ears. We'll prescribe Debrox. Safe for discharge close outpatient follow-up I. I feel this is a highly complex case requiring extensive working including EKG/Rhythm strip, Xray/CT/US, Blood/urine lab work, repeat exams while in ED, and administration of strong opiates/narcotics for pain control, admission to hospital or close patient follow up. Diagnosis - chest pain, cerumen impaction Stable and discharged to home with Rx Debrox. Instructed to followup with PMD. Return to ED if symptoms recur or worsen Labs Test 04/21/19 12:25 White Blood Count 9.1 K/UL (4.8-10.8) Red Blood Count 4.51 M/UL (4.70-6.10) Hemoglobin 15.6 G/DL (14.2-18.0) Hematocrit 45.0 % (42.0-52.0) Mean Corpuscular Volume 100 FL (80-99) Mean Corpuscular Hemoglobin 34.5 PG (27.0-31.0) Mean Corpuscular Hemoglobin Concent 34.6 G/DL (32.0-36.0) Red Cell Distribution Width 10.9 % (11.6-14.8) Platelet Count 275 K/UL (150-450) Mean Platelet Volume 6.8 FL (6.5-10.1) Neutrophils (%) (Auto) 57.1 % (45.0-75.0) Lymphocytes (%) (Auto) 31.1 % (20.0-45.0) Monocytes (%) (Auto) 8.9 % (1.0-10.0) Eosinophils (%) (Auto) 1.6 % (0.0-3.0) Basophils (%) (Auto) 1.4 % (0.0-2.0) Sodium Level 139 MMOL/L (136-145) Potassium Level 3.7 MMOL/L (3.5-5.1) Chloride Level 105 MMOL/L (98-107) Carbon Dioxide Level 29 MMOL/L (21-32) Anion Gap 6 mmol/L (5-15) Blood Urea Nitrogen 4 mg/dL (7-18) Creatinine 0.8 MG/DL (0.55-1.30) Estimat Glomerular Filtration Rate > 60 mL/min (>60) Glucose Level 72 MG/DL (74-106) Calcium Level 8.8 MG/DL (8.5-10.1) Total Bilirubin 0.2 MG/DL (0.2-1.0) Aspartate Amino Transf (AST/SGOT) 25 U/L (15-37) Alanine Aminotransferase (ALT/SGPT) 30 U/L (12-78) Alkaline Phosphatase 63 U/L (46-116) Total Creatine Kinase 152 U/L (26-308) Creatine Kinase MB < 0.5 NG/ML (0.0-3.6) Creatine Kinase MB Relative Index 0.3 Troponin I 0.000 ng/mL (0.000-0.056) Pro-B-Type Natriuretic Peptide 27 pg/mL (0-125) Total Protein 7.7 G/DL (6.4-8.2) Albumin 3.5 G/DL (3.4-5.0) Globulin 4.2 g/dL Albumin/Globulin Ratio 0.8 (1.0-2.7) Urine Opiates Screen Negative (NEGATIVE) Urine Barbiturates Screen Negative (NEGATIVE) Phencyclidine (PCP) Screen Negative (NEGATIVE) Urine Amphetamines Screen Negative (NEGATIVE) Urine Benzodiazepines Screen Negative (NEGATIVE) Urine Cocaine Screen Negative (NEGATIVE) Urine Marijuana (THC) Screen Negative (NEGATIVE) EKG Diagnostic Results Rate: normal Rhythm: NSR ST Segments: no acute changes ASA given to the pt in ED: No Rhythm Strip Diag. Results EP Interpretation: yes Rhythm: NSR, no PVC's, no ectopy Chest X-Ray Diagnostic Results Chest X-Ray Diagnostic Results : Chest X-Ray Ordered: Yes # of Views/Limited/Complete: 1 View Indication: Chest Pain EP Interpretation: Yes Interpretation: no consolidation, no effusion, no pneumothorax, no acute cardiopulmonary disease Impression: No acute disease Electronically Signed by: Electronically signed by Tucker Camarena MD Last Vital Signs Date Time Temp Pulse Resp B/P (MAP) Pulse Ox O2 Delivery O2 Flow Rate FiO2 04/21/19 11:44 98.1 18 127/84 98 Room Air 04/21/19 11:38 82 Status: improved Disposition: HOME, SELF-CARE Condition: Stable Scripts Carbamide Peroxide (DEBROX) 15 Ml Drops 5 DROP BOTH EARS TWICE A DAY for 4 Days, ML 0 Refills Prov: Tucker Camarena MD 04/21/19 Referrals: Reji BARCENAS,REFERRING (PCP) Tucker Camarena MD Apr 21, 2019 12:54
[2019-04-21 13:25] LABS: ALANINE AMINOTRANSFERASE 30 U/L (12-78); ALBUMIN 3.5 G/DL (3.4-5.0); ALBUMIN/GLOBULIN RATIO 0.8 (1.0-2.7); ALKALINE PHOSPHATASE 63 U/L (46-116); ANION GAP 6 mmol/L (5-15); ASPARTATE AMINO TRANSFERASE 25 U/L (15-37); BILIRUBIN,TOTAL 0.2 MG/DL (0.2-1.0); BLOOD UREA NITROGEN 4 mg/dL (7-18); CALCIUM 8.8 MG/DL (8.5-10.1); CARBON DIOXIDE 29 MMOL/L (21-32); CHLORIDE 105 MMOL/L (98-107); CKMB < 0.5 NG/ML (0.0-3.6); CREATINE KINASE 152 U/L (26-308); POTASSIUM 3.7 MMOL/L (3.5-5.1); SODIUM 139 MMOL/L (136-145)
--- NOTE | 2019-04-21 13:28 | NUR ---
ED Nurse Note: PER DR. Medeiros, PT. IS OK TO EAT. PT. WAS GIVEN SANDWICH, JUICE AND WATER
[2019-04-21 13:39] LABS: CREATININE 0.8 MG/DL (0.55-1.30)
[2019-04-21] MEDS ORDERED: DEBROX15 M1 BOTH EARS (13:44)
[2019-04-21 13:56] VITALS: BP 100/63
--- NOTE | 2019-04-21 13:57 | NUR ---
ER DISCHARGE NOTE: Patient is cleared to be discharged per ERMD, pt is aox4, on room air, with stable vital signs. pt was given dc and prescription instructions, pt was able to verbalize understanding, pt id band and iv site removed without complications. pt is able to ambulate with steady gait. pt took all belongings.
--- NOTE | 2019-04-21 14:43 | Diagnostic Imaging Report ---
EXAM: XR Chest, 1 View CLINICAL HISTORY: CP TECHNIQUE: Frontal view of the chest. COMPARISON: 01/19/18. FINDINGS: Lungs: Mild atelectasis/scarring to the left base, similar to prior. No consolidation. Pleural space: Mild thickening of the minor fissure again noted. No pneumothorax. Heart: Unremarkable. No cardiomegaly. Mediastinum: Unremarkable. Bones/joints: Unremarkable. IMPRESSION: No evidence of acute pulmonary disease
--- NOTE | 2019-05-01 14:21 | Cardiology Report ---
APPROVED REPORT EKG Measurement Heart [id number] Normal sinus rhythm Minimal voltage criteria for LVH, may be normal variant Borderline ECG
== END 2019-04-21 13:57 | disposition home or self-care (01) ==
LOC: EMR 12:02
DX: H61.23 Impacted cerumen, bilateral (principal); R07.9 Chest pain, unspecified
CPT/HCPCS: 36415; 71045; 80053; 80307; 82550; 82553; 83880; 84484; 85025; 93005; 99284